=== PATIENT | male | born 1960 | race Caucasian/White ===

== ENCOUNTER 2016-06-22 09:13 | Outpatient (CLI) | payer OTHER, MEDICAID ==
[~2016-06-22 09:13] MED LIST: ACET1TAB25 PO; ACYC400T PO; DIPH25CA83 PO; LAMI100T7 PO; LAMI300T10 PO; MET10 PO; MODA100T5 PO; RALT100T PO; RALT400T5 PO; RITO100C2 PO; TRAM50TA92 PO; VIS25 PO; [UNRECOGNIZED DRUG - CODE] PO; [UNRECOGNIZED DRUG - CODE] PO
== END 2016-06-22 18:14 | disposition home or self-care (01) ==
LOC: SNM 09:13
PROVIDERS: ATTEND Internal Medicine Infectious Disease
DX: K80.20 Calculus of gallbladder without cholecystitis without obstruction (principal); K82.8 Other specified diseases of gallbladder
CPT/HCPCS: 78226; A9537

== ENCOUNTER 2016-11-25 16:53 | Inpatient (IN) | payer OTHER, MEDICAID ==
[~2016-11-25] VITALS: Ht 167.6 cm; Wt 37.2 kg
[~2016-11-25 16:53] MED LIST changes: -ACET1TAB25 PO; -DIPH25CA83 PO; -LAMI100T7 PO; -MET10 PO; -MODA100T5 PO; -TRAM50TA92 PO; -VIS25 PO; -[UNRECOGNIZED DRUG - CODE] PO
[2016-11-25 19:24] VITALS: BP_SYST 110
[2016-11-25 20:30] VITALS: BP_SYST 110
[2016-11-25] MEDS ORDERED: HYDROCORTISONE 1% 28.35 GM TOPICAL OINT. TP PRN (23:15)
[2016-11-26] VITALS (7 sets, daily range): BP systolic 104–126
[2016-11-26] MEDS ORDERED: COMMUNICATION ORDER XX PRN
[2016-11-26] MEDS ORDERED: D5W 1,000 ML IV SCH
[2016-11-26] MEDS: TEMAZEPAM 15 MG CAPSULE PO PRN ×2 (00:30→22:45)
[2016-11-26 07:13] LABS: BASOPHILS % (AUTO) 0.4 % (0.0-2.0); EOSINOPHILS # (AUTO) 0.1 K/uL (0.0-0.4); EOSINOPHILS % (AUTO) 1.6 % (0.0-4.0); HEMATOCRIT 39.3 % (36-54); HEMOGLOBIN 13.1 g/dL (14.0-18.0); LYMPHOCYTES # (AUTO) 1.7 K/uL (1.0-5.5); LYMPHOCYTES % (AUTO) 35.9 % (20.5-51.5); MEAN CORPUSCULAR HEMOGLOBIN 31 pg (27-31); MEAN CORPUSCULAR HGB CONC 33 % (32-36); MEAN CORPUSCULAR VOLUME 94 fL (79.0-98.0); MONOCYTES # (AUTO) 0.6 K/uL (0.0-1.0); MONOCYTES % (AUTO) 11.7 % (1.7-9.3); NEUTROPHILS # (AUTO) 2.4 K/uL (1.8-7.7); NEUTROPHILS % (AUTO) 50.4 % (40.0-70.0); PLATELET COUNT (AUTO) 275 K/uL (130-430); RED CELL DISTRIBUTION WIDTH 13.5 % (9.0-15.0); WHITE BLOOD COUNT (AUTO) 4.9 K/uL (4.8-10.8)
[2016-11-26] MEDS ORDERED: *PPN PER PHARMACY XX SCH (08:00)
[2016-11-26 08:05] LABS: ALBUMIN 3.2 g/dL (3.4-4.8); CALCIUM 9.4 mg/dL (8.4-11.0); CREATININE 0.46 mg/dL (0.55-1.30); POTASSIUM 3.4 mmol/L (3.5-5.1); TOTAL BILIRUBIN 2.8 mg/dL (0.0-1.0); TOTAL PROTEIN, SERUM 7.1 g/dL (6.4-8.3)
[2016-11-26 08:36] LABS: BILIRUBIN,URINE NEGATIVE (NEGATIVE); BLOOD, URINE NEGATIVE (NEGATIVE); CLARITY/URINE CLEAR (CLEAR); COLOR,URINE YELLOW (YELLOW); GLUCOSE,URINE NEGATIVE (NEGATIVE); KETONES,URINE NEGATIVE (NEGATIVE); LEUKOCYTE ESTERASE ,URINE NEGATIVE (NEGATIVE); NITRITE, URINE NEGATIVE (NEGATIVE); PROTEIN URINE NEGATIVE (NEGATIVE); UROBILINOGEN,URINE 0.2 (0.2-1.0)
[2016-11-26 08:52] LABS: PHOSPHORUS 4.3 mg/dL (2.7-4.5)
[2016-11-26] MEDS ORDERED: RALTEGRAVIR POTASSIUM PO SCH ×2 (09:00→21:00)
[2016-11-26] MEDS ORDERED: RITONAVIR 100 MG CAPSULE (NORVIR) PO SCH (09:00)
[2016-11-26] MEDS ORDERED: ATAZANAVIR SULFATE 300 MG PO SCH (09:00)
[2016-11-26] MEDS ORDERED: LAMIVUDINE 300 MG PO SCH (09:00)
[2016-11-26] MEDS ORDERED: DIATR MEGLU/DIATRIZ SOD 30 ML SOLUTION PO ONE (09:44)
[2016-11-26] MEDS: ACYCLOVIR 400 MG TABLET PO SCH ×2 (09:52→22:36)
[2016-11-26 10:05] LABS: TRIGLYCERIDES 37 mg/dL (30-150)
[2016-11-26] MEDS: LACTULOSE 20 GM/30 ML UDC PO SCH ×4 (10:07→15:49)
[2016-11-26 10:08] LABS: THYROID STIMULATING HORMONE < 0.01 uIu/mL (0.34-4.82)
[2016-11-26] MEDS ORDERED: POTASSIUM CHLORIDE 20 MEQ TAB.PRT.SR PO ONE (11:45)
[2016-11-26] MEDS ORDERED: IOHEXOL 100 ML IV ONE (13:30)
[2016-11-26] MEDS: cefTRIAXone 1 GM in D5W 50 ML IV SCH (14:06)
[2016-11-26] MEDS: MAGNESIUM CITRATE 300 ML ORAL SOLUTION PO ONE ×2 (15:49→18:33)
[2016-11-26] MEDS ORDERED: BISACODYL 5 MG TABLET.DR (DULCOLAX) PO ONE (17:00)
[2016-11-26] MEDS ORDERED: TPN PERIPHERAL 0.0001 ML, SODIUM ACETATE 40 MEQ, POTASSIUM CHLORIDE 20 MEQ, K PHOS 6 MM... IV SCH ×10 (18:00)
[2016-11-26] MEDS ORDERED: SORBITOL 70% SOLUTION, 30 ML UDBTL PO ONE (18:30)
[2016-11-26] MEDS: FAT EMULSIONS 250 ML IV SCH (18:47)
[2016-11-26] MEDS: TPN PERIPHERAL 0.0001 ML, SODIUM CHLORIDE 40 MEQ, POTASSIUM CHLORIDE 20 MEQ, K PHOS 6 M... IV SCH ×10 (18:49)
[2016-11-26] MEDS: METOCLOPRAMIDE HCL 10 MG/2 ML VIAL IVP PRN (22:36)
[2016-11-27 00:13] VITALS: BP_SYST 109
[2016-11-27 04:16] VITALS: BP_SYST 121
[2016-11-27 07:14] LABS: BASOPHILS % (AUTO) 0.3 % (0.0-2.0); EOSINOPHILS # (AUTO) 0.1 K/uL (0.0-0.4); EOSINOPHILS % (AUTO) 1.1 % (0.0-4.0); HEMATOCRIT 42.2 % (36-54); HEMOGLOBIN 14.1 g/dL (14.0-18.0); LYMPHOCYTES # (AUTO) 1.7 K/uL (1.0-5.5); LYMPHOCYTES % (AUTO) 24.4 % (20.5-51.5); MEAN CORPUSCULAR HEMOGLOBIN 31 pg (27-31); MEAN CORPUSCULAR HGB CONC 33 % (32-36); MEAN CORPUSCULAR VOLUME 92 fL (79.0-98.0); MONOCYTES # (AUTO) 0.6 K/uL (0.0-1.0); MONOCYTES % (AUTO) 9.6 % (1.7-9.3); NEUTROPHILS # (AUTO) 4.4 K/uL (1.8-7.7); NEUTROPHILS % (AUTO) 64.6 % (40.0-70.0); PLATELET COUNT (AUTO) 322 K/uL (130-430); RED BLOOD CELL COUNT(AUTO) 4.57 MIL/uL (4.2-6.2); RED CELL DISTRIBUTION WIDTH 13.7 % (9.0-15.0)
[2016-11-27 07:25] LABS: WHITE BLOOD COUNT (AUTO) 6.8 K/uL (4.8-10.8)
[2016-11-27 07:31] LABS: ALBUMIN 3.3 g/dL (3.4-4.8); CALCIUM 9.5 mg/dL (8.4-11.0); CREATININE 0.55 mg/dL (0.55-1.30); POTASSIUM 4.3 mmol/L (3.5-5.1); TOTAL BILIRUBIN 0.9 mg/dL (0.0-1.0); TOTAL PROTEIN, SERUM 7.6 g/dL (6.4-8.3)
[2016-11-27] MEDS: BISACODYL 5 MG TABLET.DR (DULCOLAX) PO ONE ×2 (07:35→08:04)
[2016-11-27] MEDS: MAGNESIUM CITRATE 300 ML ORAL SOLUTION PO ONE ×2 (07:36→08:05)
[2016-11-27 08:00] VITALS: BP_SYST 122
[2016-11-27 08:09] LABS: IRON (SERUM) 36 mcg/dL (59-158); TOTAL IRON BIND. CAPACITY 303 ug/dL (250-450)
[2016-11-27] MEDS: MIDAZOLAM HCL 5 MG/5 ML VIAL ONE ×4 (10:20→10:26)
[2016-11-27] MEDS: MEPERIDINE HCL/PF 100 MG/ML AMP ONE ×2 (10:20→10:38)
[2016-11-27 12:10] VITALS: BP_SYST 126
[2016-11-27] MEDS: RITONAVIR 100 MG PO SCH (12:35)
[2016-11-27] MEDS: ACYCLOVIR 400 MG TABLET PO SCH ×2 (12:35→21:21)
[2016-11-27] MEDS: cefTRIAXone 1 GM in D5W 50 ML IV SCH (12:35)
[2016-11-27] MEDS: ATAZANAVIR 150 MG PO SCH (12:37)
[2016-11-27 16:29] VITALS: BP_SYST 112
[2016-11-27 20:00] VITALS: BP_SYST 105
[2016-11-27] MEDS: FAT EMULSIONS 250 ML IV SCH (20:21)
[2016-11-27] MEDS: TPN PERIPHERAL 0.0001 ML, SODIUM CHLORIDE 40 MEQ, POTASSIUM CHLORIDE 20 MEQ, K PHOS 6 M... IV SCH ×10 (20:21)
[2016-11-27] MEDS: FAMOTIDINE 20 MG TABLET PO SCH (21:21)
[2016-11-28] VITALS (7 sets, daily range): BP systolic 116–149
[2016-11-28] MEDS: ACETAMINOPHEN 325 MG TABLET PO PRN ×2 (07:57→21:59)
[2016-11-28 08:06] LABS: AFP, TUMOR MARKER 4.7 ng/mL (0.0-8.3); HEPATITIS A AB, IgM Negative (Negative); HEPATITIS B CORE AB, IgM Negative (Negative); HEPATITIS B SURFACE AG Negative (Negative)
[2016-11-28] MEDS: FAMOTIDINE 20 MG TABLET PO SCH ×2 (08:52→20:54)
[2016-11-28] MEDS: ACYCLOVIR 400 MG TABLET PO SCH ×2 (08:52→20:54)
[2016-11-28] MEDS: RITONAVIR 100 MG PO SCH (08:52)
[2016-11-28] MEDS: ATAZANAVIR 150 MG PO SCH (08:53)
[2016-11-28] MEDS: MEGESTROL ACETATE 400 MG/10 ML UDC PO SCH ×2 (11:29→20:53)
[2016-11-28] MEDS: cefTRIAXone 1 GM in D5W 50 ML IV SCH (13:00)
[2016-11-28] MEDS: METHIMAZOLE 5 MG TABLET PO SCH ×2 (15:00→22:07)
[2016-11-28] MEDS: METOCLOPRAMIDE HCL 10 MG/2 ML VIAL IVP PRN (18:03)
[2016-11-28] MEDS: TPN PERIPHERAL 0.0001 ML, SODIUM CHLORIDE 40 MEQ, POTASSIUM CHLORIDE 20 MEQ, K PHOS 6 M... IV SCH ×10 (18:28)
[2016-11-28] MEDS: FAT EMULSIONS 250 ML IV SCH (18:29)
[2016-11-28 18:38] LABS: ANTI NUCLEAR AB WITH REFLEX Negative (Negative)
[2016-11-28] MEDS: TEMAZEPAM 15 MG CAPSULE PO PRN (20:54)
[2016-11-28] MEDS ORDERED: HYDROcodone/ACETAMIN 5-325 MG TAB (NORCO/ VICODIN) PO PRN (23:15)
[2016-11-29 04:12] VITALS: BP_SYST 113
[2016-11-29] MEDS: METHIMAZOLE 5 MG TABLET PO SCH ×3 (06:13→21:17)
[2016-11-29 08:00] VITALS: BP_SYST 110
[2016-11-29 08:03] LABS: ALBUMIN 3.1 g/dL (3.4-4.8); CREATININE 0.53 mg/dL (0.55-1.30); POTASSIUM 4.4 mmol/L (3.5-5.1); TOTAL BILIRUBIN 2.8 mg/dL (0.0-1.0); TOTAL PROTEIN, SERUM 7.3 g/dL (6.4-8.3)
[2016-11-29] MEDS: FAMOTIDINE 20 MG TABLET PO SCH ×2 (09:36→21:16)
[2016-11-29] MEDS: MEGESTROL ACETATE 400 MG/10 ML UDC PO SCH ×2 (09:36→21:16)
[2016-11-29] MEDS: ACYCLOVIR 400 MG TABLET PO SCH ×2 (09:36→21:16)
[2016-11-29] MEDS: RITONAVIR 100 MG PO SCH (09:37)
[2016-11-29] MEDS: ATAZANAVIR 150 MG PO SCH (09:38)
[2016-11-29] MEDS: MORPHINE 2 MG/ML INJ. SYRINGE IVP PRN ×2 (09:40→13:30)
[2016-11-29] MEDS: cefTRIAXone 1 GM in D5W 50 ML IV SCH (11:42)
[2016-11-29 12:03] VITALS: BP_SYST 119
[2016-11-29 14:29] LABS: ALPHA-1-ANTITRYPSIN, S 146 mg/dL (90-200)
[2016-11-29 16:08] VITALS: BP_SYST 128; BP_SYST 134
[2016-11-29] MEDS: FAT EMULSIONS 250 ML IV SCH (19:18)
[2016-11-29] MEDS: TPN PERIPHERAL 0.0001 ML, SODIUM CHLORIDE 40 MEQ, POTASSIUM CHLORIDE 20 MEQ, K PHOS 6 M... IV SCH ×10 (19:48)
[2016-11-29 20:00] VITALS: BP_SYST 128
[2016-11-29] MEDS: TEMAZEPAM 15 MG CAPSULE PO PRN (22:23)
[2016-11-30 00:17] VITALS: BP_SYST 123
[2016-11-30 04:00] VITALS: BP_SYST 128
[2016-11-30] MEDS: METHIMAZOLE 5 MG TABLET PO SCH ×4 (06:24→22:04)
[2016-11-30 06:55] LABS: BASOPHILS % (AUTO) 0.1 % (0.0-2.0); EOSINOPHILS % (AUTO) 0.2 % (0.0-4.0); HEMOGLOBIN 14.2 g/dL (14.0-18.0); LYMPHOCYTES # (AUTO) 1.9 K/uL (1.0-5.5); LYMPHOCYTES % (AUTO) 18.5 % (20.5-51.5); MEAN CORPUSCULAR HEMOGLOBIN 31 pg (27-31); MEAN CORPUSCULAR HGB CONC 33 % (32-36); MEAN CORPUSCULAR VOLUME 93 fL (79.0-98.0); MONOCYTES # (AUTO) 0.6 K/uL (0.0-1.0); MONOCYTES % (AUTO) 5.8 % (1.7-9.3); NEUTROPHILS # (AUTO) 7.6 K/uL (1.8-7.7); NEUTROPHILS % (AUTO) 75.4 % (40.0-70.0); PLATELET COUNT (AUTO) 321 K/uL (130-430); RED BLOOD CELL COUNT(AUTO) 4.62 MIL/uL (4.2-6.2); RED CELL DISTRIBUTION WIDTH 13.4 % (9.0-15.0); WHITE BLOOD COUNT (AUTO) 10.1 K/uL (4.8-10.8)
[2016-11-30 07:41] LABS: ALBUMIN 3.4 g/dL (3.4-4.8); CALCIUM 9.3 mg/dL (8.4-11.0); CREATININE 0.69 mg/dL (0.55-1.30); PHOSPHORUS 4.2 mg/dL (2.7-4.5); POTASSIUM 4.3 mmol/L (3.5-5.1); TOTAL BILIRUBIN 2.3 mg/dL (0.0-1.0)
[2016-11-30 08:00] VITALS: BP_SYST 141
[2016-11-30] MEDS: ACYCLOVIR 400 MG TABLET PO SCH ×2 (08:28→21:43)
[2016-11-30] MEDS: FAMOTIDINE 20 MG TABLET PO SCH ×2 (08:28→21:44)
[2016-11-30] MEDS: MEGESTROL ACETATE 400 MG/10 ML UDC PO SCH ×2 (08:29→21:43)
[2016-11-30] MEDS: HYDROCORTISONE 1%, 28.35 GM TOPICAL CREAM TP PRN ×2 (08:30→17:22)
[2016-11-30] MEDS: RITONAVIR 100 MG PO SCH (08:31)
[2016-11-30] MEDS: ATAZANAVIR 150 MG PO SCH (08:31)
[2016-11-30] MEDS ORDERED: HYDROmorphone 1 MG INJ. 1 MG/ML AMPUL IVP ONE (08:45)
[2016-11-30] MEDS: cefTRIAXone 1 GM in D5W 50 ML IV SCH (11:09)
[2016-11-30 11:10] LABS: ANTI-SMOOTH MUSCLE AB 14 Units (0-19)
[2016-11-30 11:48] VITALS: BP_SYST 138
[2016-11-30] MEDS ORDERED: GADOPENTETATE DIMEGLUMINE 15 ML VIAL IV ONE (13:26)
[2016-11-30 16:32] VITALS: BP_SYST 135
[2016-11-30] MEDS: FAT EMULSIONS 250 ML IV SCH (17:23)
[2016-11-30] MEDS: TPN PERIPHERAL 0.0001 ML, SODIUM CHLORIDE 40 MEQ, POTASSIUM CHLORIDE 20 MEQ, K PHOS 6 M... IV SCH ×10 (17:24)
[2016-11-30] MEDS: METOCLOPRAMIDE HCL 10 MG/2 ML VIAL IVP PRN (17:26)
[2016-11-30 20:00] VITALS: BP_SYST 111
[2016-11-30] MEDS: TEMAZEPAM 15 MG CAPSULE PO PRN (21:44)
[2016-11-30] MEDS: METOPROLOL TARTRATE 25 MG TABLET PO SCH (21:52)
[2016-12-01 00:59] VITALS: BP_SYST 129
[2016-12-01 04:00] VITALS: BP_SYST 118
[2016-12-01] MEDS: METHIMAZOLE 5 MG TABLET PO SCH ×2 (05:49→14:53)
[2016-12-01 08:29] LABS: POTASSIUM 4.3 mmol/L (3.5-5.1)
[2016-12-01 08:30] LABS: CALCIUM 9.5 mg/dL (8.4-11.0); CREATININE 0.63 mg/dL (0.55-1.30); FREE T4 (FREE THYROXINE) 2.2 ng/dL (0.6-1.6); PHOSPHORUS 3.7 mg/dL (2.7-4.5)
[2016-12-01 08:48] VITALS: BP_SYST 121
[2016-12-01] MEDS: MEGESTROL ACETATE 400 MG/10 ML UDC PO SCH (08:53)
[2016-12-01] MEDS: ATAZANAVIR 150 MG PO SCH (08:53)
[2016-12-01] MEDS: METOPROLOL TARTRATE 25 MG TABLET PO SCH (08:53)
[2016-12-01] MEDS: FAMOTIDINE 20 MG TABLET PO SCH (08:54)
[2016-12-01] MEDS: RITONAVIR 100 MG PO SCH (08:54)
[2016-12-01] MEDS: ACYCLOVIR 400 MG TABLET PO SCH (08:55)
[2016-12-01] MEDS: MORPHINE 2 MG/ML INJ. SYRINGE IVP PRN (11:26)
[2016-12-01] MEDS: cefTRIAXone 1 GM in D5W 50 ML IV SCH (12:13)
[2016-12-01 12:48] VITALS: BP_SYST 125
[2016-12-01 15:00] VITALS: BP_SYST 118
[2016-12-01 16:39] VITALS: BP_SYST 132
[2016-12-02 11:44] LABS: ATYPICAL pANCA <1:20 titer (Neg:<1:20); CYTOPLASMIC (C-ANCA) <1:20 titer (Neg:<1:20); CYTOPLASMIC (P-ANCA) <1:20 titer (Neg:<1:20)
== END 2016-12-01 16:22 | disposition home or self-care (01) | DRG 974 ==
LOC: SMU 19:03
PROVIDERS: ADMIT Internal Medicine Infectious Disease; ATTEND Internal Medicine Hospice and Palliative Medicine
PROC: 0DBH8ZX Excision of Cecum, Via Natural or Artificial Opening Endoscopic, Diagnostic (ICD-10-PCS; 2016-11-27)
PROC: 0DBE8ZX Excision of Large Intestine, Via Natural or Artificial Opening Endoscopic, Diagnostic (ICD-10-PCS; 2016-11-27)
PROC: 0DBB8ZX Excision of Ileum, Via Natural or Artificial Opening Endoscopic, Diagnostic (ICD-10-PCS; 2016-11-27)
PROC: 0DB58ZX Excision of Esophagus, Via Natural or Artificial Opening Endoscopic, Diagnostic (ICD-10-PCS; 2016-11-27)
PROC: 3E0336Z Introduction of Nutritional Substance into Peripheral Vein, Percutaneous Approach (ICD-10-PCS; 2016-11-27)
PROC: 0DB98ZX Excision of Duodenum, Via Natural or Artificial Opening Endoscopic, Diagnostic (ICD-10-PCS; principal; 2016-11-27 09:30)
PROC: 0DB68ZX Excision of Stomach, Via Natural or Artificial Opening Endoscopic, Diagnostic (ICD-10-PCS; 2016-11-27 09:30)
DX: B20 Human immunodeficiency virus [HIV] disease (principal); J18.9 Pneumonia, unspecified organism; E43 Unspecified severe protein-calorie malnutrition; Z68.1 Body mass index [BMI] 19.9 or less, adult; I25.10 Atherosclerotic heart disease of native coronary artery without angina pectoris; Z96.642 Presence of left artificial hip joint; G47.00 Insomnia, unspecified; K80.20 Calculus of gallbladder without cholecystitis without obstruction; L30.9 Dermatitis, unspecified; K21.0 Gastro-esophageal reflux disease with esophagitis; E86.0 Dehydration; E05.90 Thyrotoxicosis, unspecified without thyrotoxic crisis or storm; D12.0 Benign neoplasm of cecum; K44.9 Diaphragmatic hernia without obstruction or gangrene; K29.70 Gastritis, unspecified, without bleeding; R91.1 Solitary pulmonary nodule; Z88.6 Allergy status to analgesic agent; Z88.2 Allergy status to sulfonamides; Z88.8 Allergy status to other drugs, medicaments and biological substances; Z87.891 Personal history of nicotine dependence; Z87.11 Personal history of peptic ulcer disease; I25.2 Old myocardial infarction
CPT/HCPCS: 36415; 43239; 45380; 70553; 71020-TC; 71260-TC; 76700-TC; 78012; 78264-TC; 80048; 80053; 80074; 81003; 82103; 82105; 82977-TC; 83010; 83516; 83540-TC; 83550-TC; 83615-TC; 83690-TC; 83735-TC; 84100-TC; 84134; 84439; 84443-TC; 84478-TC; 85025; 85610-TC; 85651-TC; 85730-TC; 86038; 86256; 86376; 86738; 87081; 87086; 88305; 88312; 88313; A9516; A9541; A9579; J0610; J0696; J1170; J2175; J2250; J2270; J2765; J3475; J3480; J7050; J7060; J7131; J8499; Q9964; Q9967

== ENCOUNTER 2016-12-17 15:57 | Inpatient (IN) | payer OTHER, MEDICAID ==
[~2016-12-17] VITALS: Ht 167.6 cm; Wt 40.8 kg
--- NOTE | 2016-12-17 16:19 | NUR ---
ADMIT NOTE Received pt from admitting. Pt escorted to room 109C. Patient oriented to pain management, safety and call light-teach back done.
--- NOTE | 2016-12-17 16:48 | NUR ---
CONSULTATION PAGED REASON FOR CONSULTATION:RLQ PAIN R/O APPENDICITIS WAS CONSULT CALLED?Y PERSON WHO WAS NOTIFIED:LEXX CONSULTING PHYSICIAN:GENI WILKINSON QUALITY IMPROVEMENT CONSULTANT SPECIALTY:GI QUALITY IMPROVEMENT CONSULTANT PHONE NUMBER:[phone] ORDERING PHYSICIAN:ALXE BLACK
[2016-12-17 17:03] VITALS: BP_SYST 117
--- NOTE | 2016-12-17 17:04 | NUR ---
DR Dayana ANDUJAR IS AWARE OF THE ID CONSULT/ GASPER
[2016-12-17 17:07] LABS: BASOPHILS # (AUTO) 0.2 K/uL (0.0-0.2); EOSINOPHILS # (AUTO) 0.1 K/uL (0.0-0.4); EOSINOPHILS % (AUTO) 0.7 % (0.0-4.0); HEMATOCRIT 36.2 % (36-54); HEMOGLOBIN 12.1 g/dL (14.0-18.0); LYMPHOCYTES # (AUTO) 1.9 K/uL (1.0-5.5); LYMPHOCYTES % (AUTO) 10.5 % (20.5-51.5); MEAN CORPUSCULAR HEMOGLOBIN 31 pg (27-31); MEAN CORPUSCULAR HGB CONC 33 % (32-36); MEAN CORPUSCULAR VOLUME 93 fL (79.0-98.0); MONOCYTES # (AUTO) 1.6 K/uL (0.0-1.0); MONOCYTES % (AUTO) 8.7 % (1.7-9.3); NEUTROPHILS # (AUTO) 14.1 K/uL (1.8-7.7); NEUTROPHILS % (AUTO) 79.1 % (40.0-70.0); PLATELET COUNT (AUTO) 253 K/uL (130-430); RED BLOOD CELL COUNT(AUTO) 3.89 MIL/uL (4.2-6.2); RED CELL DISTRIBUTION WIDTH 13.9 % (9.0-15.0); WHITE BLOOD COUNT (AUTO) 17.9 K/uL (4.8-10.8)
[2016-12-17] MEDS ORDERED: FAMO20TA8 PO (17:12)
[2016-12-17 17:18] LABS: CALCIUM 8.9 mg/dL (8.4-11.0); CREATININE 0.55 mg/dL (0.55-1.30); POTASSIUM 4.5 mmol/L (3.5-5.1)
[2016-12-17 17:23] LABS: ALBUMIN 3.2 g/dL (3.4-4.8); TOTAL BILIRUBIN 2.9 mg/dL (0.0-1.0)
[2016-12-17] MEDS: HYDROmorphone 1 MG INJ. 1 MG/ML AMPUL IVP PRN ×2 (17:47→22:54)
[2016-12-17] MEDS ORDERED: DIATR MEGLU/DIATRIZ SOD 30 ML SOLUTION PO ONE (18:00)
--- NOTE | 2016-12-17 18:00 | NUR ---
NEW PT: RECEIVED PT FROM [facility], PT WAS A/O X4, C/O ABDOMINAL PAIN 4/10, IV AT RIGHT HAND, SKIN INTACT, CLEAR LIQUID DIET, AMBULATED WELL, CALL LIGHT WAHINE REACH.
[2016-12-17] MEDS: D5/0.45 NS 1,000 ML IV SCH (18:56)
[2016-12-17] MEDS: cefTRIAXone 1 GM in D5W 50 ML IV SCH (18:58)
--- NOTE | 2016-12-17 19:10 | NUR ---
CLOSING NOTE: ENDORSED TO TECHNICAL SUPERVISOR NURSE FOR CONTINUE CARE.
--- NOTE | 2016-12-17 19:41 | NUR ---
Pt going to CT Scan at this time.
[2016-12-17 20:00] VITALS: BP_SYST 117
[2016-12-17] MEDS ORDERED: ATAZANAVIR SULFATE 300 MG PO SCH (21:00)
[2016-12-17] MEDS ORDERED: RALTEGRAVIR POTASSIUM PO SCH (21:00)
--- NOTE | 2016-12-17 21:53 | NUR ---
REPORT CAT SCAN RESULT TO MD Received call back from Dr. Sage Licea. result of ct scan abd read can not r/o cholecystitis rec hida scan. Order received for consult with Dr. De Luna and Hida scan to follow.
[2016-12-17] MEDS: ACYCLOVIR 400 MG TABLET PO SCH (22:07)
[2016-12-17] MEDS: FAMOTIDINE 20 MG TABLET PO SCH (22:07)
--- NOTE | 2016-12-17 22:23 | NUR ---
PAIN MED: Pt states pain med Dilaudid IVP only lasts for 3 hours and abd pain is still 9/10 after. Pt requesting to have it changed to every 3hrs and requesting for a sleeping pill. Paged Dr. Sage Licea, exchange left msg. Will follow up.
--- NOTE | 2016-12-17 22:55 | NUR ---
DILAUDID: Dilaudid 1mg IVP 1 ampule removed from Pixes, but given only 0.5mg as ordered, clicked on YES instead of No under administer full dose on pixes, CRN aware.
--- NOTE | 2016-12-17 22:58 | NUR ---
MD ROUNDS: Dr. Escobedo here to see pt.
[2016-12-17] MEDS ORDERED: LACTULOSE 20 GM/30 ML UDC PO PRN (23:15)
[2016-12-17] MEDS: TEMAZEPAM 15 MG CAPSULE PO PRN (23:43)
[2016-12-18 00:28] VITALS: BP_SYST 157
--- NOTE | 2016-12-18 01:29 | NUR ---
CONSULT REASON HIDA SCAN TO FOLLOW FOR DOCTOR ALEXANDRA SPOKE WITH NASEEM
[2016-12-18] MEDS: HYDROmorphone 1 MG INJ. 1 MG/ML AMPUL IVP PRN ×4 (02:38→21:24)
--- NOTE | 2016-12-18 02:38 | NUR ---
ROUNDING: PT c/o abd pain 01/03. Medicated with Dilaudid 0.5mg IVP PRN. Pt denies any n/v. Pt aware he is NPO after midnight for Hidascan in am and no pain meds 4hrs prior to the scan. IVF infusing on R.H 20G clear and patent. Call light within reach. To monitor.
[2016-12-18 04:34] VITALS: BP_SYST 95
--- NOTE | 2016-12-18 06:46 | NUR ---
CLOSING NOTES: Pt awake. Pt voided 500 ml clear, dark yellow urine. Pt aware pain med cannot be given 4 hours prior to Hidascan. IVF infusing R hand 20G clear, patent. To endorse to am nurse.
[2016-12-18 07:03] LABS: BASOPHILS % (AUTO) 0.1 % (0.0-2.0); EOSINOPHILS # (AUTO) 0.2 K/uL (0.0-0.4); EOSINOPHILS % (AUTO) 1.2 % (0.0-4.0); HEMATOCRIT 34.5 % (36-54); HEMOGLOBIN 11.7 g/dL (14.0-18.0); LYMPHOCYTES # (AUTO) 1.6 K/uL (1.0-5.5); LYMPHOCYTES % (AUTO) 9.9 % (20.5-51.5); MEAN CORPUSCULAR HEMOGLOBIN 31 pg (27-31); MEAN CORPUSCULAR HGB CONC 34 % (32-36); MEAN CORPUSCULAR VOLUME 93 fL (79.0-98.0); MONOCYTES # (AUTO) 1.4 K/uL (0.0-1.0); MONOCYTES % (AUTO) 8.7 % (1.7-9.3); NEUTROPHILS # (AUTO) 12.7 K/uL (1.8-7.7); NEUTROPHILS % (AUTO) 80.1 % (40.0-70.0); PLATELET COUNT (AUTO) 216 K/uL (130-430); RED BLOOD CELL COUNT(AUTO) 3.73 MIL/uL (4.2-6.2); RED CELL DISTRIBUTION WIDTH 13.8 % (9.0-15.0); WHITE BLOOD COUNT (AUTO) 15.9 K/uL (4.8-10.8)
[2016-12-18 07:31] LABS: CALCIUM 8.2 mg/dL (8.4-11.0); CREATININE 0.51 mg/dL (0.55-1.30); POTASSIUM 4.1 mmol/L (3.5-5.1)
--- NOTE | 2016-12-18 07:43 | NUR ---
PT REFUSED THIS AM VITALS SIGNS Addendum: 12/18/16 at 0814 by Giuliano Brennan RN PLS DISREGARD THIS PT'S NOTE, THIS BELONGS TO ANOTHER PATIENT
[2016-12-18 07:44] VITALS: BP_SYST 109
--- NOTE | 2016-12-18 08:00 | NUR ---
OPENING NOTES, SEEN PT IN BED, PT IS AA0X4, C/O PAIN 02/02. WILL MEDICATE, PT ON ROOM AIR, BREATHING IS EVEN AND UNLABORED, NO SOB, NO DISTRESS, RIGHT HAND IV #20 INTACT AND PATENT. NO INFILTRATION/ NO LEAK. INFUSING WELL. PHONE/CALL LIGHT IN REACH. BED IN LOW POSITION. WILL CONTINUE TO MONITOR.
[2016-12-18] MEDS: ACYCLOVIR 400 MG TABLET PO SCH ×2 (08:06→20:36)
[2016-12-18] MEDS: FAMOTIDINE 20 MG TABLET PO SCH ×2 (08:06→20:36)
[2016-12-18] MEDS: RITONAVIR 100 MG PO SCH (08:13)
[2016-12-18] MEDS: ATAZANAVIR 150 MG PO SCH (08:13)
--- NOTE | 2016-12-18 08:14 | NUR ---
PT'S OWN MEDICATIONS NOT AVAILABLE, PT STATED THAT HIS FAMILY HAS BEEN TOLD TO BRING IT HERE.
--- NOTE | 2016-12-18 08:51 | NUR ---
Nutrition Update Dillan Scale 18 noted. Pt admitted for severe R lower quadrant pain. Diet: clear liquid (12/17/16 Dinner) and NPO (12/18/16 Breakfast) -- 2 active, separate diet orders BMI: 14.5 kg/m2 RD to follow per nutrition care standards.
[2016-12-18] MEDS ORDERED: RITONAVIR 100 MG CAPSULE (NORVIR) PO SCH (09:00)
[2016-12-18] MEDS ORDERED: RALTEGRAVIR POTASSIUM PO SCH (09:00)
[2016-12-18] MEDS ORDERED: LAMIVUDINE 300 MG PO SCH (09:00)
--- NOTE | 2016-12-18 10:00 | NUR ---
Rounding notes, Pt in bed, no c/o pain. no distress noted. IV intact. IVF infusing well. Encouraged pt to call for assistance. call light in reach. bed in low position. will cont to monitor.
[2016-12-18] MEDS: D5/0.45 NS 1,000 ML IV SCH (10:51)
--- NOTE | 2016-12-18 12:00 | NUR ---
PT KEPT NPO FOR HIDA SCAN. NO PAIN MEDS GIVEN.
[2016-12-18 12:05] VITALS: BP_SYST 123
--- NOTE | 2016-12-18 15:00 | NUR ---
PT CAME BACK FROM HIDA SCAN. GIVEN CLEAR LIQUID DIET.
--- NOTE | 2016-12-18 15:20 | NUR ---
1520: PT GIVEN PAIN MED, DILAUDID 0.5 MG, FOR PAIN LEVEL OF 10/10 IN ABDOMEN.
--- NOTE | 2016-12-18 15:50 | NUR ---
PAIN REASSESSMENT: 0/10 , NO PAIN.
[2016-12-18 15:55] VITALS: BP_SYST 129
[2016-12-18] MEDS: cefTRIAXone 1 GM in D5W 50 ML IV SCH (17:37)
--- NOTE | 2016-12-18 17:38 | NUR ---
PT MADE AWARE OF DR MORRIS'S ORDER INCLUDING NPO AFTER MIDNIGHT.
--- NOTE | 2016-12-18 18:40 | NUR ---
CLOSING NOTES, PT IN BED, GIVEN PAIN MED AT 1820PM, VISITOR AT BEDSIDE. PT'S OWN MED GIVEN TO PHARMACIST AND NOW IN PT'S CASSETTE IN MED ROOM. LABS ORDERED BY DR MORRIS AND PT TO BE NPO AFTER MIDNIGHT. WILL ENDORSE TO NIGHT RN.
[2016-12-18 20:37] VITALS: BP_SYST 112
--- NOTE | 2016-12-18 20:40 | NUR ---
Initial note A/O x 3, no SOB, no chest pain, c/o R sided ABD pain 12/03. Patient is aware of next Dilaudid will be around 2119. Clear lung sounds and active bowel sounds. Call light within reach, bed at lowest position, bed alarm on, will continue to monitor patient.
--- NOTE | 2016-12-18 21:24 | NUR ---
C/o R ABD pain 12/03. Dilaudid 0.5 mg IVP given per patient requested.
[2016-12-18] MEDS: TEMAZEPAM 15 MG CAPSULE PO PRN (21:27)
--- NOTE | 2016-12-18 21:27 | NUR ---
Patient asking for sleeping pill. Restoril given.
--- NOTE | 2016-12-18 21:30 | NUR ---
PHY CONS: PHY CONSULT: ( [facility]ROLE[facility] GEOLOGIST) TIME:0700 DATE:12/19/16 REASON FOR CONS:CAD PHY REQ COSN:DR.PATELN S.W:YOUSIF
--- NOTE | 2016-12-18 21:40 | NUR ---
Informed Dr. Salcedo the cardiac consult.
--- NOTE | 2016-12-18 22:05 | NUR ---
Rounds Sleeping in bed, no SOB, no chest pain, no grimacing after Dilaudid and sleeping pill given. IVF ongoing. Call light within reach, bed at lowest position, bed alarm on, will continue to monitor patient.
--- NOTE | 2016-12-18 22:05 | NUR ---
Reassessed pain level Patient is sleeping, no grimacing.
--- NOTE | 2016-12-18 22:50 | NUR ---
Emptied 700 ml clear yellow urine.
[2016-12-19] VITALS (7 sets, daily range): BP systolic 104–113
--- NOTE | 2016-12-19 | NUR ---
Rounds Sleeping in bed, no SOB, no chest pain, no grimacing. IVF ongoing. Call light within reach, bed at lowest position, bed alarm on, will continue to monitor patient.
[2016-12-19] MEDS: HYDROmorphone 1 MG INJ. 1 MG/ML AMPUL IVP PRN ×7 (01:17→22:09)
--- NOTE | 2016-12-19 01:17 | NUR ---
C/o R ABD 02/02 pain Dilaudid 0.5 mg IVP given per patient requested.
--- NOTE | 2016-12-19 01:50 | NUR ---
Reassessed pain level Patient is sleeping, no grimacing.
--- NOTE | 2016-12-19 02:00 | NUR ---
Rounds Sleeping in bed, no SOB, no chest pain, no grimacing after Dilaudid given. IVF ongoing. Call light within reach, bed at lowest position, bed alarm on, will continue to monitor patient.
--- NOTE | 2016-12-19 04:00 | NUR ---
Rounds Resting/sleeping in bed, easy to awake. No SOB, no chest pain, mild pain at R ABD. Call light within reach, bed at lowest position, bed alarm on, will continue to monitor patient.
--- NOTE | 2016-12-19 05:27 | NUR ---
C/o ABD pain, 02/02 Dilaudid 0.5 mg IVP given per patient requested.
--- NOTE | 2016-12-19 06:11 | NUR ---
Rounds Sleeping in bed, no SOB, no chest pain, no grimacing after Dilaudid IVP given. IVF ongoing, still has 200 ml left. Call light within reach, bed at lowest position, bed alarm on, will continue to monitor patient.
--- NOTE | 2016-12-19 06:24 | NUR ---
Closing note No SOB, no chest pain, but still has R ABD pain. Patient stated Dilaudid is not working for him too well now. Will inform incoming nurse regarding patient pain management. Call light within reach, bed at lowest position, bed alarm on, will give report to incoming nurse.
[2016-12-19] MEDS: D5/0.45 NS 1,000 ML IV SCH ×2 (06:38→18:45)
--- NOTE | 2016-12-19 06:38 | NUR ---
IVF bag almost empty. Changed a new bag. Patient was sleeping/resting in bed.
[2016-12-19 07:10] LABS: ALBUMIN 2.4 g/dL (3.4-4.8); BILIRUBIN,DIRECT 0.5 mg/dL (0.0-0.3); CALCIUM 8.3 mg/dL (8.4-11.0); CREATININE 0.65 mg/dL (0.55-1.30); POTASSIUM 3.3 mmol/L (3.5-5.1); TOTAL BILIRUBIN 1.6 mg/dL (0.0-1.0)
[2016-12-19 07:11] LABS: BASOPHILS % (AUTO) 0.1 % (0.0-2.0); EOSINOPHILS # (AUTO) 0.2 K/uL (0.0-0.4); HEMATOCRIT 34.4 % (36-54); HEMOGLOBIN 11.7 g/dL (14.0-18.0); LYMPHOCYTES # (AUTO) 1.3 K/uL (1.0-5.5); LYMPHOCYTES % (AUTO) 8.6 % (20.5-51.5); MEAN CORPUSCULAR HEMOGLOBIN 31 pg (27-31); MEAN CORPUSCULAR HGB CONC 34 % (32-36); MEAN CORPUSCULAR VOLUME 92 fL (79.0-98.0); MONOCYTES # (AUTO) 1.5 K/uL (0.0-1.0); MONOCYTES % (AUTO) 9.9 % (1.7-9.3); NEUTROPHILS # (AUTO) 12.3 K/uL (1.8-7.7); PLATELET COUNT (AUTO) 232 K/uL (130-430); RED BLOOD CELL COUNT(AUTO) 3.72 MIL/uL (4.2-6.2); RED CELL DISTRIBUTION WIDTH 13.1 % (9.0-15.0); WHITE BLOOD COUNT (AUTO) 15.3 K/uL (4.8-10.8)
--- NOTE | 2016-12-19 08:06 | NUR ---
AM ROUNDS RECEIVED PT SLEEPING BUT AROUSABLE. AAOX4 IN NO ACUTE DISTRESS. IVF INFUSING WELL INTO RT FA, NO S/S OF INFILTRATION NOTED. PT DENIES ANY PAIN AT THIS TIME. NO FEVER NOTED THIS AM. DISCUSSED WITH PT POC FOR THE DAY, PT VERBALIZED UNDERSTANDING. BED NOTED TO BE IN LOWEST POSITION WITH SIDE RAILS UP X2. CALL LIGHT WITHIN REACH, PT ENCOURAGED TO USE CALL LIGHT FOR ASSISTANCE. VERBALIZED UNDERSTANDING. Addendum: 12/19/16 at 0809 by Abby Lan RN ENTERED IN ERROR. WRONG PATIENT
--- NOTE | 2016-12-19 08:17 | NUR ---
AM ROUNDS RECEIVED PT AAOX4, C/O PAIN 01/03. IVF INFUSING WELL INTO RT HAND, NO S/S OF INFILTRATION NOTED. DISCUSSED POC FOR THE DAY WITH PT INCLUDING PAIN MANAGEMENT AND MRCP, PT VERBALIZED UNDERSTANDING. BED NOTED TO BE IN LOWEST POSITION WITH SIDE RAILS UP X2 AND CALL LIGHT WITHIN REACH. ENCOURAGED PT TO USE CALL LIGHT FOR ASSISTANCE. PT VERBALIZED UNDERSTANDING. WILL MEDICATE FOR PAIN PER MD ORDER.
[2016-12-19] MEDS: ACYCLOVIR 400 MG TABLET PO SCH ×2 (09:00→21:36)
[2016-12-19] MEDS: ATAZANAVIR 150 MG PO SCH (09:00)
[2016-12-19] MEDS: RITONAVIR 100 MG PO SCH (09:00)
[2016-12-19] MEDS: FAMOTIDINE 20 MG TABLET PO SCH ×2 (09:00→21:36)
[2016-12-19 09:17] LABS: PROTHROMBIN TIME 11.3 SECS (9.5-12.5)
[2016-12-19 09:51] LABS: NEUTROPHILS % (AUTO) 80.4 % (40.0-70.0)
[2016-12-19 10:00] LABS: FREE T4 (FREE THYROXINE) 0.9 ng/dl (0.8-1.5)
[2016-12-19 10:41] LABS: THYROID STIMULATING HORMONE < 0.01 uIu/mL (0.34-4.82)
--- NOTE | 2016-12-19 11:27 | NUR ---
ROUNDS PT NOTED TO BE SITTING UP IN BED WATCHING TV. C/O PAIN 01/03 AT THIS TIME. WILL MEDICATED WITH DILAUDID PER MD ORDER. PT NOTIFIED THAT DOSE WAS INCREASED FROM 0.5MG TO 1MG. PT VERBALIZED UNDERSTANDING. CALL LIGHT WITHIN REACH. PT ENCOURAGED TO CALL FOR ASSISTANCE
--- NOTE | 2016-12-19 12:19 | NUR ---
DR. MORRIS ROUNDS DR. MORRIS ASKING IF MRCP WILL BE DONE TODAY OR NOT. VERIFIED WITH CHARGE NURSE AND MRCP WILL NOT BE DONE UNTIL WEDNESDAY. DR. MORRIS AWARE.
--- NOTE | 2016-12-19 12:30 | NUR ---
MRCP PT INFORMED THAT MRCP WILL NOT BE DONE UNTIL WEDNESDAY AND THAT HE IS OK TO EAT. PT VERBALIZED UNDERSTANDING
--- NOTE | 2016-12-19 13:45 | NUR ---
Dietitian Recommendations * Consider advance to clear liquid diet if/when medically appropriate LP, RD Please refer to Nutrition Assessment for details.
--- NOTE | 2016-12-19 14:03 | NUR ---
ROUNDS PT NOTED TO BE SITTING UP IN BED WITH VISITOR AT BEDSIDE. STATES PAIN IS 7 OR 8 OUT OF 10. INSTRUCTED PT I WILL BRING IN HIS PAIN MEDICATION WHEN IT WAS DUE IN ABOUT 30 MINIUTES. PT VERBALIZED UNDERSTANDING AND WAS AGREEABLE TO THAT. NO ACUTE DISTRESS NOTED. CALL LIGHT WITHIN REACH. PT ENCOURAGED TO USE CALL LIGHT FOR ASSISTANCE. VERBALIZED UNDERSTANDING
--- NOTE | 2016-12-19 16:06 | NUR ---
ROUNDS PT RESTING IN BED WATCHING TV. NO PAIN NOTED AT THIS TIME. DISCUSSED POC REGARDING PAIN MEDICATION PRIOR TO SHIFT CHANGE. PT TO CALL RN BEFORE 7 TO REQUEST DOSE. PT VERBALIZED UNDERSTANDING. CALL LIGHT WITHIN REACH. ENCOURAGED TO USE CALL LIGHT FOR ASSISTANCE.
[2016-12-19] MEDS: cefTRIAXone 1 GM in D5W 50 ML IV SCH (17:46)
--- NOTE | 2016-12-19 19:01 | NUR ---
CLOSING NOTE PT SITTING UP IN BED WATCHING TV IN NO ACUTE DISTRESS. MEDICATED FOR PAIN PRIOR TO SHIFT CHANGE. PT AWARE OF PLAN FOR MRCP ON Wednesday. BED IN LOWEST POSITION WITH SIDE RAILS UP X2 AND CALL LIGHT WITHIN REACH. ENCOURAGED TO USE CALL LIGHT FOR ASSISTANCE. WILL ENDORSE TO NOC SHIFT
--- NOTE | 2016-12-19 19:25 | NUR ---
INITIAL NOTE Patient resting on the bed. No acute distress. Respiration even and unlabored. AO x 4. Denied of pain at this time. Skin warm and dry to touch. IV intact to right hand, no redness, no swelling, no drainage. On D5 1/2NS at 60ml/hr, infusing well. Discussed the safety issue, use call light when need help, and plan of care, verbally understanding. Safety measure maintained. Bed in low position, side rails up. Call light within reached. Will continue to monitor.
[2016-12-19] MEDS: TEMAZEPAM 15 MG CAPSULE PO PRN (21:41)
--- NOTE | 2016-12-19 22:09 | NUR ---
DILAUDID GIVEN Patient c/o right abdomen pain 12/03, Dilaudid 1mg IVP given as ordered. No acute distress. Respiration even and unlabored. Safety measure maintained. Bed in low position, side rails up. Call light within reached. Will continue to monitor.
--- NOTE | 2016-12-19 23:57 | NUR ---
ROUND Patient resting on the bed comfortable. No acute distress. Respiration even and unlabored. IV intact, IVF infusing well.Safety measure maintained. Call light within reached. Bed in low position, side rails up. Continue to monitor.
[2016-12-20 00:09] VITALS: BP_SYST 99
[2016-12-20] MEDS: D5/0.45 NS 1,000 ML IV SCH ×2 (00:15→16:40)
--- NOTE | 2016-12-20 00:50 | NUR ---
IV RE-INSERTION: Complaining of leaking to IV site. IV removed with tip intact, no bleeding. Restarted on LFA with gauge 22 Successful after two attempts. Resumed current IVF of D5 1/2NS and regulated @ 60ml/hr. Will observe for any signs of infiltration.
[2016-12-20] MEDS: HYDROmorphone 1 MG INJ. 1 MG/ML AMPUL IVP PRN ×7 (01:09→23:28)
--- NOTE | 2016-12-20 01:14 | NUR ---
DILAUDID GIVEN Patient c/o right abdomen pain 11/02, Dilaudid 1mg IVP given as ordered. No acute distress. Respiration even and unlabored. Safety measure maintained. Bed in low position, side rails up. Call light within reached. Will continue to monitor.
--- NOTE | 2016-12-20 02:25 | NUR ---
DR. ANDUJAR [facility] VISITED WITH TPN ORDER.
[2016-12-20] MEDS ORDERED: *TPN PER PHARMACY XX PRN (02:30)
--- NOTE | 2016-12-20 02:31 | NUR ---
ROUND Patient resting on the bed with eyes closed. No acute distress. Respiration even and unlabored. IV intact, IVF infusing well. Safety measure maintained. Bed in low position, side rails up. Call light within reached. Continue to monitor.
--- NOTE | 2016-12-20 04:18 | NUR ---
DILAUDID GIVEN Patient c/o right abdomen pain 11/02, Dilaudid 1mg IVP given as ordered. No acute distress. Safety measure maintained. Bed in low position, side rails up. Call light within reached. Continue to monitor.
[2016-12-20 05:03] VITALS: BP_SYST 104
--- NOTE | 2016-12-20 06:36 | NUR ---
CLOSING NOTE Patient resting on the bed. No acute distress. Respiration even and unlabored. Skin warm and dry to touch. IV intact to LFA, no redness, no swelling, no drainage. On D5 1/2NS at 60ml/hr, infusing well. Pain med given around clock during shift. All needs met. Hourly rounding during shift. Safety measure maintained. Bed in low position, side rails up. Call light within reached. Will endorse to morning shift nurse.
[2016-12-20 08:01] VITALS: BP_SYST 105
[2016-12-20] MEDS: FAMOTIDINE 20 MG TABLET PO SCH ×2 (08:15→20:10)
[2016-12-20] MEDS: ACYCLOVIR 400 MG TABLET PO SCH ×2 (08:15→20:10)
[2016-12-20] MEDS: RITONAVIR 100 MG PO SCH (08:17)
[2016-12-20] MEDS: ATAZANAVIR 150 MG PO SCH ×2 (08:18→08:22)
[2016-12-20] MEDS ORDERED: COR3.125 PO (08:31)
[2016-12-20] MEDS ORDERED: METO25TA6 PO (08:31)
[2016-12-20] MEDS ORDERED: METH5TAB70 PO (08:31)
--- NOTE | 2016-12-20 09:30 | NUR ---
Comfort TSB, back rub /lotion given with minimal assist ,no sign pressure sore, encouraged patient to change position from time to time verbalized understanding.
[2016-12-20 10:04] LABS: CREATININE 0.61 mg/dL (0.55-1.30); POTASSIUM 3.3 mmol/L (3.5-5.1)
[2016-12-20 10:08] LABS: ALBUMIN 2.3 g/dL (3.4-4.8); PHOSPHORUS 2.1 mg/dL (2.7-4.5); TOTAL BILIRUBIN 0.5 mg/dL (0.0-1.0)
[2016-12-20] MEDS ORDERED: METOPROLOL TARTRATE 25 MG TABLET PO ONE (11:15)
[2016-12-20 12:14] VITALS: BP_SYST 128
--- NOTE | 2016-12-20 12:38 | NUR ---
Patient upper abdominal pain is better tolerates clear liquid with out nausea/vomiting.
--- NOTE | 2016-12-20 15:41 | NUR ---
PAGED DR LUKEOK [phone], JAZMINE PIPER
--- NOTE | 2016-12-20 16:00 | NUR ---
IV PLACEMENT: # 22 gauge angiocath placed to LEFT FOREARM. Use of asceptic technique. Opsite placed over site. Blood return noted. Flushed with 10 cc of normal saline. No evidence of infiltration noted. Patient tolerated WELL.Reinserted IV cannula for PPN.
[2016-12-20 16:07] VITALS: BP_SYST 110
[2016-12-20] MEDS: cefTRIAXone 1 GM in D5W 50 ML IV SCH (16:44)
[2016-12-20] MEDS: FAT EMULSIONS 250 ML IV SCH (17:28)
--- NOTE | 2016-12-20 17:30 | NUR ---
Explained to patient PPN/LIPIDS infusion agree and started , to left forearm instructed if any feeling of tightness, pain, redness or infiltration to call RN verbalized understanding, will continue to monitor, provided bedside commode due to fall risk , instructed to call for help if his getting out of bed call light within reach.
[2016-12-20] MEDS ORDERED: TPN PERIPHERAL 0.0001 ML, SODIUM ACETATE 40 MEQ, POTASSIUM ACETATE 20 MEQ, K PHOS 9 MM,... IV SCH ×10 (18:00)
[2016-12-20 20:00] VITALS: BP_SYST 121
--- NOTE | 2016-12-20 20:00 | NUR ---
Initial note A/O x 3, no SOB, no chest pain, c/o R sided ABD pain 10/10. Patient Dilaudid is given. Clear lung sounds and active bowel sounds. Call light within reach, bed at lowest position, bed alarm on, will continue to monitor patient.
[2016-12-20] MEDS: METOPROLOL TARTRATE 25 MG TABLET PO SCH (20:10)
[2016-12-20] MEDS: METHIMAZOLE 5 MG TABLET PO SCH (20:11)
[2016-12-20] MEDS: TEMAZEPAM 15 MG CAPSULE PO PRN (22:34)
--- NOTE | 2016-12-20 22:38 | NUR ---
RN NOTES: PT is awake in the bed. c/o can't sleep.request sleep medication.dim the light,reposition pt,instruct pt to call if need any help,call light within reach. pt need all met.
--- NOTE | 2016-12-20 23:32 | NUR ---
PAIN MEDS: PAIN medication is given as pt request . able to ambulate to the bed commode.call light within reach.continue monitor.
[2016-12-21 00:56] VITALS: BP_SYST 103
[2016-12-21] MEDS: HYDROmorphone 1 MG INJ. 1 MG/ML AMPUL IVP PRN ×6 (02:21→22:38)
--- NOTE | 2016-12-21 02:28 | NUR ---
PAIN MEDICATION: PT C/O PAIN,BUT NO DISTRESS OF BREATH,CAN'T SLEEP BECAUSE OF THE ABD PAIN.REQUEST DILAUDID GIVE ON TIME Q3.CALL LIGHT WITHIN REACH.
[2016-12-21 04:48] VITALS: BP_SYST 107
--- NOTE | 2016-12-21 05:30 | NUR ---
RN NOTES: PT is awake and alert ,sitting on the bed commode for stool.stool is loose,dark color.urine [id number].pain medication is given.call light within reach,continue monitor.
--- NOTE | 2016-12-21 07:30 | NUR ---
CLOSING NOTES: PT is resting in the bed ,IV is intact,ambulatory. explain still need keep in NPO for possible Operation,waiting for the OR available.all needs ate met.call light within reach ,continue monitor.
[2016-12-21 07:36] LABS: BASOPHILS % (AUTO) 0.1 % (0.0-2.0); EOSINOPHILS # (AUTO) 0.2 K/uL (0.0-0.4); EOSINOPHILS % (AUTO) 2.1 % (0.0-4.0); HEMATOCRIT 32.6 % (36-54); HEMOGLOBIN 10.9 g/dL (14.0-18.0); LYMPHOCYTES # (AUTO) 1.2 K/uL (1.0-5.5); LYMPHOCYTES % (AUTO) 14.9 % (20.5-51.5); MEAN CORPUSCULAR HEMOGLOBIN 31 pg (27-31); MEAN CORPUSCULAR HGB CONC 33 % (32-36); MEAN CORPUSCULAR VOLUME 92 fL (79.0-98.0); MONOCYTES # (AUTO) 0.8 K/uL (0.0-1.0); NEUTROPHILS # (AUTO) 6.1 K/uL (1.8-7.7); NEUTROPHILS % (AUTO) 72.9 % (40.0-70.0); PLATELET COUNT (AUTO) 247 K/uL (130-430); RED BLOOD CELL COUNT(AUTO) 3.55 MIL/uL (4.2-6.2); RED CELL DISTRIBUTION WIDTH 13.1 % (9.0-15.0); WHITE BLOOD COUNT (AUTO) 8.3 K/uL (4.8-10.8)
[2016-12-21 07:45] LABS: PROTHROMBIN TIME 10.9 SECS (9.5-12.5)
[2016-12-21 08:00] VITALS: BP_SYST 125
[2016-12-21 08:00] LABS: ALBUMIN 2.1 g/dL (3.4-4.8); BILIRUBIN,DIRECT 0.2 mg/dL (0.0-0.3); CREATININE 0.56 mg/dL (0.55-1.30); PHOSPHORUS 2.2 mg/dL (2.7-4.5); POTASSIUM 3.2 mmol/L (3.5-5.1); TOTAL BILIRUBIN 0.7 mg/dL (0.0-1.0)
--- NOTE | 2016-12-21 08:00 | NUR ---
AM SHIFT NOTE: RECEIVED PT A/O X4, NPO FOR SURGERY TODAY, IV AT LEFT FA WITH PPN AND LIPID RUNNING, SKIN INTACT, AMBULATED WITH FIRE WATCHER, BED AT LOWEST POSITION, CALL LIGHT WITHIN REACH.
[2016-12-21] MEDS: FAMOTIDINE 20 MG TABLET PO SCH ×2 (09:20→21:40)
[2016-12-21] MEDS: ACYCLOVIR 400 MG TABLET PO SCH ×2 (09:20→21:39)
[2016-12-21] MEDS: METOPROLOL TARTRATE 25 MG TABLET PO SCH ×2 (09:20→21:40)
--- NOTE | 2016-12-21 09:30 | NUR ---
MEDS: PAIN MEDS GIVEN, ROUTINE MEDS GIVE. PT TOLERATED WELL.
--- NOTE | 2016-12-21 09:50 | NUR ---
Nutrition F/U Admitting Diagnosis Severe RLQ pain, malnutrition Reviewed Pertinent Medical/Surgical Hx Medical Record Medical History Comment: HIV, hyperthyroidism per MD notes Subjective Information Pt was not in room at time of RD visit. Pt was likely away for MRI MRCP. Per MD orders, plans for MRI MRCP this morning as well as lap cholecystectomy versus open cholecystectomy this afternoon. RD s/w pharmacist this morning to provide RD rec. Pt remains on PPN support; no central line. Per EMR, PPN Intakes: 624 ml 12/21/16. Abd is soft and non-distended w/ active bowel sounds. I/O: 1344/0 (+1344 ml) per 12 hours. Pt is not yet meeting optimal nutritional needs. Pt is not appropriate for nutrition education. Current Diet Order/Nutrition Support NPO x1 day PPN D20%, AA8.5% at 42 ml/hr, IL20% at 10 ml/hr daily via peripheral line Patient/Significant Other Able To Verbalize Education Provided Not Indicated Pertinent Medications D5%/NaCl IV at 60 ml/hr (245 kcal/day) Pertinent Labs K 3.2 L, ALP 1325 H, Tbili 0.7 WNL (improved), WBC 8.3 H, ALB 2.1 L, ALP 125 H, H/H 10.9 L/32.6 L Height (Feet) 5 feet Height (Inches) 6.00 inches Weight (Pounds) 90 pounds (admission) Weight (Calculated Kilograms) 40.414417 kilograms Patient Weight 40.823 kg Body Mass Index 14.52 kg/m2 Usual Weight 90 lbs %UBW 100 %IBW 63 [place]/Adjusted Body Weight IBW: 142 lb, 65 kg Recent Weight Change No Weight Status Emaciated Gastrointestinal Symptoms None Last BM 12/21/16 Food Allergies No Usual Diet At Home Regular, no restrictions Skin Integrity Comment: Dillan scale: 17; no skin issues noted Current % PO Good (75-100%) Estimated Energy Expenditure (kcals/day) 9040-5710 kcal/day (BEE x 1.2-1.5 CBW for wt gain promotion) Estimated Protein Required (g/day) 65-78 gm/day (1-1.2 gm/kg IBW for wt gain promotion) Estimated Fluid Required (l/day) 1.3-1.6 L/day (1 ml/kcal/day for maintenance) Problem/Etiology/Signs/Symptoms Malnutrition related to physiological causes as evidenced by BMI: 14.5 kg/m2 and 63% of IBW, as well as thin, emaciated appearance. Expected Outcomes/Goals - Monitor advancement of diet, appetite, and PO intakes w/ goal of pt meeting at least 50% of estimated nutritional needs, labs trending WNL, normal GI function, and skin integrity/wt maintenance Dietitian Recommendations * Recommend continuing PPN D20%, AA8.5% at 42 ml/hr, IL20% at 10 ml/hr daily via peripheral line Provides (w/ D5% IV at 60 ml/hr): 1239 kcal/day, 43 gm protein/day, 1248 ml total volume/day, and GIR: 1.7 gm CHO/kg/min Meets: 95% of lower end of estimated caloric needs and 66% of lower end of estimated protein needs * Consider advance to clear liquid diet if/when medically appropriate Follow Up High Risk: F/U in 2-3 days
[2016-12-21] MEDS: METHIMAZOLE 5 MG TABLET PO SCH ×2 (09:59→21:40)
[2016-12-21] MEDS: ATAZANAVIR 150 MG PO SCH (09:59)
[2016-12-21 11:25] VITALS: BP_SYST 110
--- NOTE | 2016-12-21 13:25 | NUR ---
CALLED OR: CALLED OR TO VERIFY IF THE PT WILL GO FOR SURGERY TODAY, PT IS ON NPO SINCE MID NIGHT. BUT THE OR NURSE WAS NOT SURE AT THIS TIME. WILL CALL BACK LATER.
--- NOTE | 2016-12-21 13:53 | NUR ---
Dietitian Recommendations * Recommend continuing PPN D20%, AA8.5% at 42 ml/hr, IL20% at 10 ml/hr daily via peripheral line Provides (w/ D5% IV at 60 ml/hr): 1239 kcal/day, 43 gm protein/day, 1248 ml total volume/day, and GIR: 1.7 gm CHO/kg/min Meets: 95% of lower end of estimated caloric needs and 66% of lower end of estimated protein needs * Consider advance to clear liquid diet if/when medically appropriate LP, RD Please refer to Nutrition F/U for details.
--- NOTE | 2016-12-21 14:03 | NUR ---
CALLED MD: CALLED TO VERIFY FOR THE SURGERY TODAY.
[2016-12-21] MEDS: D5/0.45 NS 1,000 ML IV SCH (15:21)
[2016-12-21 15:35] VITALS: BP_SYST 103
--- NOTE | 2016-12-21 15:45 | NUR ---
PT WENT FOR SURGERY: PT WENT FOR SURGERY, CONSENT DONE, VITAL SIGNS STABLE.
[2016-12-21] MEDS ORDERED: METOCLOPRAMIDE HCL 10 MG/2 ML VIAL IVP PRN (17:15)
[2016-12-21] MEDS ORDERED: MORPHINE 4 MG/ML INJ. SYRINGE IVP PRN ×2 (17:15)
[2016-12-21] MEDS: 0.45% NACL 1,000 ML IV SCH ×2 (17:45→21:38)
[2016-12-21] MEDS ORDERED: [UNRECOGNIZED DRUG - OTHER] IV SCH ×11 (18:00)
[2016-12-21] MEDS ORDERED: POTASSIUM CHLORIDE IV SCH ×11 (18:00)
[2016-12-21] MEDS ORDERED: TPN PERIPHERAL IV SCH ×11 (18:00)
[2016-12-21] MEDS ORDERED: SODIUM ACETATE IV SCH ×11 (18:00)
[2016-12-21] MEDS: MORPHINE 4 MG/ML INJ. SYRINGE IVP PRN ×2 (18:05→18:15)
[2016-12-21] MEDS ORDERED: MORPHINE 4 MG/ML INJ. SYRINGE ONE (18:09)
--- NOTE | 2016-12-21 19:05 | NUR ---
PT RETURNED FROM SURGERY: PT HAD LAP CHOLECYSTECTOMY DONE BY DR. MORRIS. PT WAS A/O X4, VITAL SIGNS STABLE.
--- NOTE | 2016-12-21 19:10 | NUR ---
OPENING NOTES RECEIVED REPORT FROM DAYSHIFT NURSE AT BEDSIDE. PATIENT POST-SURGERY, STABLE, GROGGY, ALERT TO NAME AND LOCATION. IV PATENT AND INFUSING NO SIGNS OF INFILTRATION. DRESSINGS DRY AND INTACT. TIFFANIE DRAINING. PATIENT VOIDED IN URINAL. RESPIRATIONS EVEN AND UNLABORED. VITALS SIGNS WITHIN NORMAL LIMITS. BED IN LOWEST POSITION, BED ALARM ON, CALL LIGHT WITHIN REACH.
--- NOTE | 2016-12-21 19:25 | NUR ---
CLOSING NOTE: ENDORSED TO TELEHEALTH COORDINATOR NURSE/ ASTON/RN FOR CONTINUE CARE.
[2016-12-21] MEDS: cefTRIAXone 1 GM in D5W 50 ML IV SCH (19:43)
[2016-12-21 19:45] VITALS: BP_SYST 135
[2016-12-21] MEDS: FAT EMULSIONS 250 ML IV SCH (19:47)
--- NOTE | 2016-12-21 20:00 | NUR ---
PAIN PT COMPLAINS OF PAIN 10/10, WILL ADMINISTER PRN PAIN MEDICATION.
[2016-12-21] MEDS: metroNIDAZOLE 500 mg/NS 100 ML IV SCH (21:39)
[2016-12-21] MEDS: RITONAVIR 100 MG PO SCH (21:40)
[2016-12-21] MEDS: TEMAZEPAM 15 MG CAPSULE PO PRN (22:38)
--- NOTE | 2016-12-21 22:43 | NUR ---
PAIN PATIENT STATED PAIN 10/10 IN ABDOMINAL AREA. ADMINISTERED PRN PAIN MEDICATION. PT. TOLERATED.
[2016-12-22] VITALS (7 sets, daily range): BP systolic 95–128
--- NOTE | 2016-12-22 00:30 | NUR ---
RN ROUNDS PATIENT SLEEPING, VISIBLE RISE AND FALL OF CHEST NOTED, RESPIRATIONS EVEN AND UNLABORED. IV, PPN, LIPIDS INFUSING WITH NO SIGNS OF INFILTRATION NOTED. NO S/S OF ACUTE DISTRESS NOTED. FALL PRECAUTIONS IN PLACE, BED ALARM ON, CALL LIGHT WITHIN REACH.
--- NOTE | 2016-12-22 01:45 | NUR ---
PAIN PATIENT COMPLAINED OF PAIN 10/10IN ABDOMEN. PRN PAIN MEDICATION ADMINISTERED.
[2016-12-22] MEDS: metroNIDAZOLE 500 mg/NS 100 ML IV SCH ×3 (01:47→16:50)
[2016-12-22] MEDS: HYDROmorphone 1 MG INJ. 1 MG/ML AMPUL IVP PRN ×2 (01:47→05:00)
--- NOTE | 2016-12-22 02:35 | NUR ---
RN ROUNDS PATIENT SLEEPING, VISIBLE RISE AND FALL OF CHEST NOTED, RESPIRATIONS EVEN AND UNLABORED. NO S/S OF ACUTE DISTRESS NOTED. FALL PRECAUTIONS IN PLACE, BED ALARM ON, CALL LIGHT WITHIN REACH.
--- NOTE | 2016-12-22 04:35 | NUR ---
RN ROUNDS PATIENT SLEEPING WITH VISIBLE RISE AND FALL OF CHEST. NO S/S OF ACUTE DISTRESS NOTED. FALL PRECAUTIONS IN PLACE, CALL LIGHT WITHIN REACH.
--- NOTE | 2016-12-22 05:06 | NUR ---
pain med. Medicated for pain level 9/10 at this time,now, resting in bed with no distress, no bleeding noted at this time.
--- NOTE | 2016-12-22 06:30 | NUR ---
PAIN PAGED DR. TRACY ORDERS PLACED TO MODIFY EXISTING PRN PAIN MEDICATION ORDERS.
--- NOTE | 2016-12-22 07:00 | NUR ---
CLOSING NOTES PATIENT A/O X4. PT COMPLAINED OF PAIN 02/02, PT EDUCATED THAT MEDICATION COULD NOT BE ADMINISTERED UNTIL 0749. PT. VERBALIZED UNDERSTANDING. IV FLUIDS, PPN, AND LIPIDS INFUSING NO SIGNS OF INFILTRATION. DRESSINGS DRY AND INTACT. TIFFANIE DRAINING RED FLUID. RESPIRATIONS EVEN AND UNLABORED. VITALS SIGNS WITHIN NORMAL LIMITS. BED IN LOWEST POSITION, BED ALARM ON, CALL LIGHT WITHIN REACH. WILL ENDORSE CARE TO DAYSHIFT.
[2016-12-22 07:20] LABS: BASOPHILS % (AUTO) 0.2 % (0.0-2.0); EOSINOPHILS # (AUTO) 0.2 K/uL (0.0-0.4); EOSINOPHILS % (AUTO) 1.9 % (0.0-4.0); HEMATOCRIT 37.4 % (36-54); HEMOGLOBIN 12.7 g/dL (14.0-18.0); LYMPHOCYTES # (AUTO) 1.1 K/uL (1.0-5.5); LYMPHOCYTES % (AUTO) 9.1 % (20.5-51.5); MEAN CORPUSCULAR HEMOGLOBIN 31 pg (27-31); MEAN CORPUSCULAR HGB CONC 34 % (32-36); MEAN CORPUSCULAR VOLUME 91 fL (79.0-98.0); MONOCYTES # (AUTO) 0.6 K/uL (0.0-1.0); MONOCYTES % (AUTO) 5.5 % (1.7-9.3); NEUTROPHILS # (AUTO) 9.9 K/uL (1.8-7.7); NEUTROPHILS % (AUTO) 83.3 % (40.0-70.0); PLATELET COUNT (AUTO) 278 K/uL (130-430); RED BLOOD CELL COUNT(AUTO) 4.13 MIL/uL (4.2-6.2); RED CELL DISTRIBUTION WIDTH 12.7 % (9.0-15.0)
[2016-12-22 07:31] LABS: WHITE BLOOD COUNT (AUTO) 11.8 K/uL (4.8-10.8)
[2016-12-22 07:44] LABS: CALCIUM 7.9 mg/dL (8.4-11.0); CREATININE 0.43 mg/dL (0.55-1.30); POTASSIUM 3.6 mmol/L (3.5-5.1); TOTAL BILIRUBIN 1.2 mg/dL (0.0-1.0)
[2016-12-22] MEDS ORDERED: HYDROmorphone 2 MG/ML VIAL IVP PRN (07:49)
--- NOTE | 2016-12-22 08:00 | NUR ---
AM SHIFT NOTE: RECEIVED PT A/O X4, C/O LAP CHOLEY ON 12/21/16, POST OP DAY ONE, PAIN 5/10, IV AT RIGHT FOREARM AND LEFT FA WITH PPN AT 42 ML/HR AND D51/2 NS AT 60 ML/HR AND LIPD AT 10ML/HR. CLEAR LIQUID DIET, INCISION SITE AT ABDOMEN WITH 4 POINT, DRESSING INTACT, AND TIFFANIE DRAINAGE IN PLACE, AMBULATED WITH PRINCIPAL SOFTWARE ARCHITECT, BED SIDE COMMODE, VOIDING, BED AT LOWEST POSITION, CALL LIGHT WITHIN REACH.
[2016-12-22] MEDS: METOPROLOL TARTRATE 25 MG TABLET PO SCH ×2 (08:09→21:00)
[2016-12-22] MEDS: ACYCLOVIR 400 MG TABLET PO SCH ×2 (08:09→22:01)
[2016-12-22] MEDS: FAMOTIDINE 20 MG TABLET PO SCH ×2 (08:09→22:01)
[2016-12-22] MEDS: ATAZANAVIR 150 MG PO SCH ×2 (08:11→22:07)
[2016-12-22] MEDS: METHIMAZOLE 5 MG TABLET PO SCH ×2 (08:13→22:02)
--- NOTE | 2016-12-22 09:25 | NUR ---
MEDS: ROUTINE MEDS GIVEN, PT TOLERATED WELL.
--- NOTE | 2016-12-22 09:30 | NUR ---
MD ROUNDING: SEEN BY DR. MORRIS, ORDER CARRIED OUT.
[2016-12-22] MEDS: HYDROmorphone 2 MG/ML VIAL IVP PRN ×3 (11:15→18:53)
--- NOTE | 2016-12-22 12:50 | NUR ---
ROUNDING: PT HAD CLEAR LIQUID DIET. C/O SOME ABDOMINAL DISTENDED. PT GOT UP FOR A WHILE WITH GRUBBER HELPED.
[2016-12-22] MEDS: D5/0.45 NS 1,000 ML IV SCH (14:44)
--- NOTE | 2016-12-22 14:53 | NUR ---
DC Planning: Requested from dr. Doll to dc plan / order and arrange sub acute/snf. Cm/Dcp to f/u Addendum: 12/22/16 at 1515 by Judy Burr DP Faxed SNF referral to [phone] [phone]. Will follow up. Addendum: 12/22/16 at 2507 by Judy Burr DP Spoke with Bard in admitting at [facility] patient accepted. Brad requested to be called for bed assignment upon discharge order. CM made aware.
[2016-12-22] MEDS: cefTRIAXone 1 GM in D5W 50 ML IV SCH (16:50)
[2016-12-22] MEDS: FAT EMULSIONS 250 ML IV SCH (16:53)
--- NOTE | 2016-12-22 17:50 | NUR ---
ROUNDING: ROUTINE MEDS GIVEN, PAIN MEDS GIVEN ORDERED.
[2016-12-22] MEDS ORDERED: SODIUM CHLORIDE IV SCH ×10 (18:00)
[2016-12-22] MEDS ORDERED: TPN PERIPHERAL IV SCH ×10 (18:00)
[2016-12-22] MEDS ORDERED: [UNRECOGNIZED DRUG - OTHER] IV SCH ×10 (18:00)
[2016-12-22] MEDS ORDERED: POTASSIUM ACETATE IV SCH ×10 (18:00)
[2016-12-22] MEDS: RITONAVIR 100 MG PO SCH (18:53)
--- NOTE | 2016-12-22 19:00 | NUR ---
ROUNDING: SEEN BY .
--- NOTE | 2016-12-22 19:15 | NUR ---
CLOSING: ENDORSED TO SECOND BAKER NURSE/DUYEN FOR CONTINUE CARE.
--- NOTE | 2016-12-22 19:15 | NUR ---
OPENING NOTES RECEIVED REPORT FROM DAYSHIFT NURSE AT BEDSIDE. PATIENT DAY 2, POST-SURGERY, STABLE, A/O x4. IV PATENT AND INFUSING NO SIGNS OF INFILTRATION. DRESSINGS DRY AND INTACT. TIFFANIE DRAINING RED FLUID. PATIENT VOIDED IN URINAL. RESPIRATIONS EVEN AND UNLABORED, LUNGS CLEAR. VITALS SIGN BLOOD PRESSURE 95/65. BED IN LOWEST POSITION, BED ALARM ON, CALL LIGHT WITHIN REACH.
--- NOTE | 2016-12-22 20:10 | NUR ---
NAUSEA PT COMPLAINED OF NAUSEA, DID NOT VOMIT. EMESIS BAG PROVIDED, WILL ADMINISTER PRN ANTI-EMETIC.
[2016-12-22] MEDS: ONDANSETRON HCL 4 MG/2 ML VIAL IVP PRN (20:45)
--- NOTE | 2016-12-22 22:00 | NUR ---
Round. resting in bed with no distress,void 450ml yellow urine(urinal), call light in reach,bed in low position, bed alarm on.
[2016-12-22] MEDS: TEMAZEPAM 15 MG CAPSULE PO PRN (22:27)
[2016-12-22] MEDS ORDERED: metroNIDAZOLE 500 mg/NS 100 ML IV ONE ×2 (22:53→23:00)
--- NOTE | 2016-12-23 | NUR ---
IV RE-INSERTION: infiltration to IV sites. Restarted on 12/23/16 at 0000 . Successful after 3 attempts. Resumed current IVF, ppn, lipids and regulated. Will observe for any signs of infiltration. Right upper arm 20 Gauge, lipids at 10ml/hr, ppn at 42 ml/hr. Left forearm 22 Gauge, D5 1/2NS at 60ml/hr and antibiotics. Patient tolerated.
--- NOTE | 2016-12-23 02:00 | NUR ---
Round. sleeping in bed at this time with no distress,PPN/lipid infusing via Rt arm, patent,ivf/D51/2 ns infusing via Lt arm, patent; call light in reach,bed in low position, bed alarm on.
--- NOTE | 2016-12-23 03:30 | NUR ---
PAIN PATIENT COMPLAINS OF ABDOMINAL PAIN AT INCISION SITE 02/02, WILL ADMINISTER PRN PAIN MEDICATION. BLOOD PRESSURE 124/82, RESPIRATIONS 18.
[2016-12-23] MEDS: HYDROmorphone 2 MG/ML VIAL IVP PRN ×5 (03:44→22:13)
--- NOTE | 2016-12-23 05:30 | NUR ---
RN ROUNDS PATIENT SLEEPING IN SEMI-KELLOGG'S POSITION. NO S/S OF ACUTE DISTRESS NOTED. IV, PPN, LIPIDS INFUSING WITH NO SIGNS OF INFILTRATION. VISIBLE RISE AND FALL OF CHEST NOTED. FALL PRECAUTIONS IN PLACE, CALL LIGHT WITHIN REACH.
[2016-12-23 05:55] VITALS: BP_SYST 98
[2016-12-23] MEDS: D5/0.45 NS 1,000 ML IV SCH ×2 (06:05→18:18)
[2016-12-23] MEDS: metroNIDAZOLE 500 mg/NS 100 ML IV SCH ×4 (06:17→21:40)
--- NOTE | 2016-12-23 07:01 | NUR ---
ROUND. Condition stable, slept most of the night, no fever during the shift, no bleeding to surgical site, january in place, with less than a cc serosanguineous drainage;call light in reach/bed in low position, bed alarm on.
--- NOTE | 2016-12-23 07:39 | NUR ---
CLOSING NOTES PATIENT A/O X4. IV FLUIDS, PPN, AND LIPIDS INFUSING NO SIGNS OF INFILTRATION. DRESSINGS DRY AND INTACT. TIFFANIE DRAINING RED FLUID. RESPIRATIONS EVEN AND UNLABORED. VITALS SIGNS WITHIN NORMAL LIMITS. BED IN LOWEST POSITION, BED ALARM ON, CALL LIGHT WITHIN REACH. WILL ENDORSE CARE TO DAYSHIFT.
[2016-12-23 07:44] LABS: BASOPHILS % (AUTO) 0.2 % (0.0-2.0); EOSINOPHILS # (AUTO) 0.1 K/uL (0.0-0.4); EOSINOPHILS % (AUTO) 0.9 % (0.0-4.0); HEMATOCRIT 35.5 % (36-54); HEMOGLOBIN 11.3 g/dL (14.0-18.0); LYMPHOCYTES # (AUTO) 1.1 K/uL (1.0-5.5); LYMPHOCYTES % (AUTO) 7.9 % (20.5-51.5); MEAN CORPUSCULAR HEMOGLOBIN 29 pg (27-31); MEAN CORPUSCULAR HGB CONC 32 % (32-36); MEAN CORPUSCULAR VOLUME 92 fL (79.0-98.0); MONOCYTES # (AUTO) 1.1 K/uL (0.0-1.0); MONOCYTES % (AUTO) 7.8 % (1.7-9.3); NEUTROPHILS # (AUTO) 12.2 K/uL (1.8-7.7); NEUTROPHILS % (AUTO) 83.2 % (40.0-70.0); PLATELET COUNT (AUTO) 293 K/uL (130-430); RED BLOOD CELL COUNT(AUTO) 3.86 MIL/uL (4.2-6.2); RED CELL DISTRIBUTION WIDTH 12.7 % (9.0-15.0); WHITE BLOOD COUNT (AUTO) 14.5 K/uL (4.8-10.8)
--- NOTE | 2016-12-23 08:00 | NUR ---
AM SHIFT NOTE: RECEIVED PT A/O X 4, C/O ABDOMINAL PAIN 08/03, POST OP 2 DAYS,TIFFANIE IN PLACE, DRESSING DRY AND INTACT, IV AT RIGHT FA AND LEFT FA WITH PPN 42ML/HR AND LIPID AND D5 1/2 NS AT 60 ML/HR, CLEAR LIQUID DIET. AMBULATED WITH PT.VOIDING WELL, BED AT LOWEST POSITION, CALL LIGHT WITHIN REACH.
[2016-12-23 08:01] LABS: CREATININE 0.45 mg/dL (0.55-1.30); PHOSPHORUS 2.2 mg/dL (2.7-4.5); POTASSIUM 3.9 mmol/L (3.5-5.1)
--- NOTE | 2016-12-23 08:35 | NUR ---
MD ROUNDING: SEEN BY ,
--- NOTE | 2016-12-23 09:40 | NUR ---
ROUNDING: ROUTINE MEDS GIVEN, PAIN MEDS GIVEN.
--- NOTE | 2016-12-23 09:40 | NUR ---
MD ROUNDING: SEEN BY DR. YEUNG.
[2016-12-23] MEDS: ACYCLOVIR 400 MG TABLET PO SCH ×2 (09:55→20:28)
[2016-12-23] MEDS: METOPROLOL TARTRATE 25 MG TABLET PO SCH ×3 (09:57→20:35)
[2016-12-23] MEDS: ONDANSETRON HCL 4 MG/2 ML VIAL IVP PRN (09:59)
[2016-12-23] MEDS: FAMOTIDINE 20 MG TABLET PO SCH ×2 (10:17→20:29)
[2016-12-23] MEDS: METHIMAZOLE 5 MG TABLET PO SCH ×2 (10:19→20:32)
--- NOTE | 2016-12-23 12:03 | NUR ---
DISCHARGE PLANNING DC Planning order for LTAC evaluation. Faxed DC Planning order to [phone]. Notified [facility] Will follow up. Addendum: 12/23/16 at 1429 by Judy Burr DP [facility]; spoke with Brad in admitting at [facility] patient assigned to room [facility] RN to report bed available anytime.
--- NOTE | 2016-12-23 12:15 | NUR ---
ROUNDING: PT HAD LUNCH WELL, CONTINUE TO MONITOR.
[2016-12-23 12:42] VITALS: BP_SYST 113
[2016-12-23 16:47] VITALS: BP_SYST 103
[2016-12-23] MEDS: cefTRIAXone 1 GM in D5W 50 ML IV SCH (17:46)
[2016-12-23] MEDS: FAT EMULSIONS 250 ML IV SCH (17:49)
[2016-12-23] MEDS ORDERED: TPN PERIPHERAL IV SCH ×10 (18:00)
[2016-12-23] MEDS ORDERED: SODIUM CHLORIDE IV SCH ×10 (18:00)
[2016-12-23] MEDS ORDERED: [UNRECOGNIZED DRUG - OTHER] IV SCH ×10 (18:00)
[2016-12-23] MEDS ORDERED: POTASSIUM ACETATE IV SCH ×10 (18:00)
--- NOTE | 2016-12-23 18:10 | NUR ---
ROUNDING: ROUTINE MEDS GIVEN, CONTINUE TO MONITOR.
[2016-12-23] MEDS: RITONAVIR 100 MG PO SCH (18:34)
--- NOTE | 2016-12-23 19:10 | NUR ---
CLOSING : ENDORSED TO DAILY SALES AUDIT CLERK RN /KELLY FOR CONTINUE CARE, PT WAS A/O X 4, VITAL SIGNS STABLE.
--- NOTE | 2016-12-23 19:25 | NUR ---
CHANGE OF SHIFT: pt. awake when received, with visitor at bedside. IV on both arms with PPN, Lipids and D5 1/2 NS @ 6o ml. hr. abdominal dressing intact with J-dent. call light within reach.
[2016-12-23 20:01] VITALS: BP_SYST 104
--- NOTE | 2016-12-23 20:30 | NUR ---
NOTES: schedule meds given. pt. voided per urinal. pt. needs attended.
[2016-12-23] MEDS: TEMAZEPAM 15 MG CAPSULE PO PRN (21:41)
--- NOTE | 2016-12-23 21:45 | NUR ---
NOTES: pt. wants his pain shot now, explain to pt. that medication is not due yet, wants to speak to charge nurse. informed charge nurse Brie and will talk to pt. as soon as possible.
--- NOTE | 2016-12-23 23:00 | NUR ---
NOTES: pt. sleeping when checked. continue to monitor.
--- NOTE | 2016-12-24 00:21 | NUR ---
NOTES: IVF on left forearm been alarming, flush line, keep patent. pt. waking up but goes back to sleep.
[2016-12-24 01:48] VITALS: BP_SYST 100
[2016-12-24] MEDS: HYDROmorphone 2 MG/ML VIAL IVP PRN ×3 (02:49→12:10)
--- NOTE | 2016-12-24 02:53 | NUR ---
NOTES: medicated for c/o post op abdominal pain, repositioned self.
--- NOTE | 2016-12-24 03:49 | NUR ---
NOTES: pt. sleeping when checked. condition unchanged.
[2016-12-24 06:00] VITALS: BP_SYST 114
--- NOTE | 2016-12-24 06:00 | NUR ---
NOTES: still sleeping when made rounds. IVF on both arms infusing well. abdominal dressing intact with J-dent.
[2016-12-24] MEDS: metroNIDAZOLE 500 mg/NS 100 ML IV SCH ×2 (06:37→14:45)
--- NOTE | 2016-12-24 06:52 | NUR ---
CLOSING NOTES: IV PPN @ 42 cc/hr, Lipids @ 10 cc/hr via rt. arm and D5 1/2 NS @ 60 ml/hr via left forearm. still pretty sleepy when checked. J-dent drained @ 10 cc.abdominal dressing intact. off sequential. for further care and assistance.
[2016-12-24 07:21] LABS: BASOPHILS % (AUTO) 0.2 % (0.0-2.0); EOSINOPHILS # (AUTO) 0.2 K/uL (0.0-0.4); EOSINOPHILS % (AUTO) 1.8 % (0.0-4.0); HEMATOCRIT 31.3 % (36-54); HEMOGLOBIN 10.2 g/dL (14.0-18.0); LYMPHOCYTES # (AUTO) 1.5 K/uL (1.0-5.5); LYMPHOCYTES % (AUTO) 12.4 % (20.5-51.5); MEAN CORPUSCULAR HEMOGLOBIN 30 pg (27-31); MEAN CORPUSCULAR HGB CONC 33 % (32-36); MEAN CORPUSCULAR VOLUME 92 fL (79.0-98.0); MONOCYTES # (AUTO) 0.8 K/uL (0.0-1.0); MONOCYTES % (AUTO) 6.5 % (1.7-9.3); NEUTROPHILS # (AUTO) 9.2 K/uL (1.8-7.7); NEUTROPHILS % (AUTO) 79.1 % (40.0-70.0); PLATELET COUNT (AUTO) 290 K/uL (130-430); RED CELL DISTRIBUTION WIDTH 13.2 % (9.0-15.0); WHITE BLOOD COUNT (AUTO) 11.7 K/uL (4.8-10.8)
--- NOTE | 2016-12-24 07:25 | NUR ---
endorsed pt. to incoming shift with nurse Kaplan, pt. still sleeping.
[2016-12-24 07:44] LABS: ALBUMIN 2.1 g/dL (3.4-4.8); CALCIUM 7.8 mg/dL (8.4-11.0); CREATININE 0.51 mg/dL (0.55-1.30); PHOSPHORUS 2.3 mg/dL (2.7-4.5); TOTAL BILIRUBIN 1.1 mg/dL (0.0-1.0)
[2016-12-24 08:05] VITALS: BP_SYST 115
--- NOTE | 2016-12-24 08:05 | NUR ---
Opening Note Report received from Loni WHEELER. Patient is currently resting in bed. Call light is within reach and bed is in low position. TPN is running @ 40 and Lipids @10 on the LFA 20g IV. D51/2NS is running on the RFA @ 60. Abdominal incision is covered with an occlusive dressing. TIFFANIE drain is on the right abdomen draining sanginous drainage. Will continue to monitor.
[2016-12-24] MEDS: FAMOTIDINE 20 MG TABLET PO SCH (08:22)
[2016-12-24] MEDS: ACYCLOVIR 400 MG TABLET PO SCH (08:23)
[2016-12-24] MEDS: METOPROLOL TARTRATE 25 MG TABLET PO SCH (08:24)
[2016-12-24] MEDS: METHIMAZOLE 5 MG TABLET PO SCH (08:25)
[2016-12-24] MEDS: ATAZANAVIR 150 MG PO SCH (08:26)
--- NOTE | 2016-12-24 10:13 | NUR ---
DISCHARGE PLANNING Spoke with [facility] patient accepted [facility]. Bed assignment will be given upon discharge order. Ordered Radiology CD. Placed transportation packet in nurses station. Addendum: 12/24/16 at 1516 by Judy Burr DP patient assigned to room 312B at [facility] RN to report [phone] bed available after 7pm. CM to notify patient. LIAM Kaplan made aware. Called [facility] [phone] arranged BLS transport berry picker 7pm. Addendum: 12/24/16 at 1551 by Judy Burr DP Per patient requested confirmed with Cyndi, bed can be available soonest 6pm. LIAM Kaplan made aware. Called [facility] [phone] spoke with Watson who unable to arrange transport at 6pm. Called [facility] [phone] spoke with Yinka arranged BLS transport berry picker 6pm.
--- NOTE | 2016-12-24 10:30 | NUR ---
MD Rounds Dr. De Luna rounded on the patient. MD removed the right abdominal TIFFANIE drain and original surgical dressing. Patient tolerated well.
--- NOTE | 2016-12-24 12:10 | NUR ---
Pain med Medicated the patient with Dilaudid 2mg IVP. Will reassess.
[2016-12-24] MEDS: D5/0.45 NS 1,000 ML IV SCH (12:34)
[2016-12-24 12:38] VITALS: BP_SYST 107
--- NOTE | 2016-12-24 13:00 | NUR ---
Rounds Patient is resting in bed. Call light is within reach and bed is in low position.
--- NOTE | 2016-12-24 13:30 | NUR ---
PT NOTES CHART REVIEWED AND CLEARED FOR PT BY TARIQ GARZA. ATTEMPTED TO SEE PATIENT FOR THERAPY AT 1115 AND 1215. PT REFUSED ALL SKILLED INTERVENTION TODAY D/T 02/02 PAIN AT INCISION SITE. DISCUSSED WITH NURSINGTARIQ. PT GIVEN PAIN MEDICATIONS, BUT STILL DID NOT WANT TO PERFORM THERAPY. EDUCATED PT THE IMPORTANCE OF OOB ACTIVITIES AND GAIT TRAINING W PT HAVING A GOOD UNDERSTANDING. PT STATES, "I WILL TRY TOMORROW IF I AM NOT D/C BY THAN." NURSING AWARE PT WILL NOT PERFORM THERAPY TODAY. PT POSSIBLY D/C TO SNF LATER TOODAY PER RN. PVE(2) Addendum: 12/24/16 at 1441 by Josefa Bee PT PHYSICAL THERAPY CO-SIGN The Physical Therapy Progress Notes documented by Building Consultant have been reviewed. Reviewed/Co-Signed by: Josefa Bee PT Documentation Done by: Yash Vitale, DISTRIBUTION CENTER ASSOCIATE
--- NOTE | 2016-12-24 14:48 | NUR ---
Nutrition F/U Admitting Diagnosis Severe RLQ pain, malnutrition Reviewed Pertinent Medical/Surgical Hx Medical Record Patient Primary RN Medical History Comment: HIV, hyperthyroidism per MD notes Subjective Information Pt was seen resting in bed w/ surgeon and primary RN at bedside providing care. Pt is s/p TIFFANIE drain removal from abd region. Pt reported that he has been tolerating clear liquid diet well, and had some gelatin, fruit ice, and sips of coffee. Pt noted preferences for chicken broth. RD to notify [facility] staff. Pt reported fair appetite, and stated he has a desire for solid foods. PPN seen infusing as per MD/pharmacy. Pt is likely meeting optimal nutritional needs, however, would benefit from advancement of diet. Pt is not appropriate for nutrition education. Current Diet Order/Nutrition Support Clear liquid x3 days + PPN D20%, AA8.5% at 44 ml/hr, IL20% at 10 ml/hr daily via peripheral line Patient/Significant Other Able To Verbalize Education Provided Not Indicated Pertinent Medications zofran, lactulose, pepcid D5%/NaCl IV at 60 ml/hr (245 kcal/day) Pertinent Labs K 4 WNL (improved), Tbili 1.1 H, WBC 11.7 H, ALB 2.1 L, ALP 116 H, H/H 10.2 L/31.3 L Height (Feet) 5 feet Height (Inches) 6.00 inches Weight (Pounds) 90 pounds (admission) Weight (Calculated Kilograms) 40.188159 kilograms Patient Weight 40.823 kg Body Mass Index 14.52 kg/m2 Usual Weight 90 lbs %UBW 100 %IBW 63 Pearl/Adjusted Body Weight IBW: 142 lb, 65 kg Recent Weight Change No Weight Status Emaciated Gastrointestinal Symptoms None Last BM 12/21/16 Food Allergies No Usual Diet At Home Regular, no restrictions Skin Integrity Comment: Dillan scale: 17; pt is s/p TIFFANIE drain removal to R abd Current % PO Good (75-100%) Estimated Energy Expenditure (kcals/day) 0459-5320 kcal/day (BEE x 1.2-1.5 CBW for wt gain promotion, Sx healing) Estimated Protein Required (g/day) 65-78 gm/day (1-1.2 gm/kg IBW for wt gain promotion, Sx healing) Estimated Fluid Required (l/day) 1.3-1.6 L/day (1 ml/kcal/day for maintenance) Problem/Etiology/Signs/Symptoms Malnutrition related to physiological causes as evidenced by BMI: 14.5 kg/m2 and 63% of IBW, as well as thin, emaciated appearance. Expected Outcomes/Goals - Monitor advancement of diet, appetite, and PO intakes w/ goal of pt meeting at least 50% of estimated nutritional needs, labs trending WNL, normal GI function, and skin integrity/wt maintenance Dietitian Recommendations * Recommend continuing PPN D20%, AA8.5% at 44 ml/hr, IL20% at 10 ml/hr daily via peripheral line Provides (w/ D5% IV at 60 ml/hr): 1264 kcal/day, 45 gm protein/day, 2496 ml total volume/day, and GIR: 1.8 gm CHO/kg/min Meets: 96% of lower end of estimated caloric needs and 69% of lower end of estimated protein needs * Consider advance to soft (low fiber/bland) diet if/when medically appropriate Follow Up High Risk: F/U in 2-3 days
--- NOTE | 2016-12-24 15:00 | NUR ---
Rounds Dr. Conner rounded on the patient he ordered for the patient to bed tranferred to [place]. Will follow up.
--- NOTE | 2016-12-24 15:00 | NUR ---
Dietitian Recommendations * Recommend continuing PPN D20%, AA8.5% at 44 ml/hr, IL20% at 10 ml/hr daily via peripheral line Provides (w/ D5% IV at 60 ml/hr): 1264 kcal/day, 45 gm protein/day, 2496 ml total volume/day, and GIR: 1.8 gm CHO/kg/min Meets: 96% of lower end of estimated caloric needs and 69% of lower end of estimated protein needs * Consider advance to soft (low fiber/bland) diet if/when medically appropriate LP, RD Please refer to Nutrition F/U for details.
--- NOTE | 2016-12-24 16:10 | NUR ---
Pain med Medicated the patient with Dilaudid 2mg IVP. Will reassess.
--- NOTE | 2016-12-24 16:30 | NUR ---
DC planning: KAT Suarez had been in to explain dc plan for LTAC per MD order to pt...pt refusing to discharge anywhere. Pt's nurse Rosaura explained the dc plan to pt also, and that his care would be continued at [facility] with the same physician Dr. merino.Pt still refusing to discharge and wants to go AMA. I went in with Judy, dc marketing planner, introduced myself, to explain the necessity of continuing his care and transfer to LTAC, IM letter..I explained that Dr. Merino wants to continue his IV nutrition, antibiotics, and pain medicine at [facility]. Pt said he wants to leave AMA. I explained to pt that he is not medically stable to leave and if he leaves AMA this could endanger his life. I explained he could appeal his discharge and presented/explained IM letter for his signature. Pt did not want to sign the IM letter, but I explained that Medicare requires us to explain his discharge and sign the IM letter to acknowledge only that his appeal rights have been explained to him. He put his reading glasses on, and took several minutes to read the letter, then signed it and said it's not a discharge dispute and requested me to get the nurse to remove his IV lines. I let nurse Rosaura know and she is contacting Dr. Merino. Charge nurse Brynn also aware. I gave pt a copy of the IM letter after he signed it. HEMANT WHEELER
--- NOTE | 2016-12-24 16:30 | NUR ---
Rounds Patient is refusing to be transferred to [place]. Will speak with CM.
[2016-12-24 16:41] VITALS: BP_SYST 109
--- NOTE | 2016-12-24 17:25 | NUR ---
RN Notes Patient has asked to leave AMA. He was advised regarding the implications of leaving AMA. CM has also spoken to him as well. He was also advised that he may be liable for any medical expenses acquired throughout the hospital stay. Will continue to monitor.
--- NOTE | 2016-12-24 18:55 | NUR ---
AMA Note Patient decided to leave AMA. Patient was advised on the implications of leaving AMA. A bed a [facility] ambulance had been arranged. However, patient refused to be transferred. CM and myself spoke to him several times a day on the reason was Dr. Merino had ordered a transfer. Patient still refused. IV and ID band were removed. His friend accompanied him off the unit. This person will also be taking care of the patient at home.
--- NOTE | 2016-12-24 19:00 | NUR ---
Spoke with MD Spoke with Dr. Merino and let him know that the patient left AMA.
== END 2016-12-24 18:45 | disposition left against medical advice (07) | DRG 414 ==
LOC: SMU 15:57
PROVIDERS: ADMIT Family Medicine; ATTEND Family Medicine
PROC: 0FJ44ZZ Inspection of Gallbladder, Percutaneous Endoscopic Approach (ICD-10-PCS; 2016-12-21)
PROC: 0FT40ZZ Resection of Gallbladder, Open Approach (ICD-10-PCS; principal; 2016-12-21 16:00)
DX: K80.63 Calculus of gallbladder and bile duct with acute cholecystitis with obstruction (principal); E43 Unspecified severe protein-calorie malnutrition; Z68.1 Body mass index [BMI] 19.9 or less, adult; B00.9 Herpesviral infection, unspecified; E05.90 Thyrotoxicosis, unspecified without thyrotoxic crisis or storm; F17.200 Nicotine dependence, unspecified, uncomplicated; M81.0 Age-related osteoporosis without current pathological fracture; I25.10 Atherosclerotic heart disease of native coronary artery without angina pectoris; M16.10 Unilateral primary osteoarthritis, unspecified hip; K66.0 Peritoneal adhesions (postprocedural) (postinfection); Z96.642 Presence of left artificial hip joint; G43.909 Migraine, unspecified, not intractable, without status migrainosus; D64.9 Anemia, unspecified; G62.9 Polyneuropathy, unspecified; Z53.21 Procedure and treatment not carried out due to patient leaving prior to being seen by health care provider; I25.2 Old myocardial infarction; Z88.2 Allergy status to sulfonamides; Z88.8 Allergy status to other drugs, medicaments and biological substances; Z90.49 Acquired absence of other specified parts of digestive tract
CPT/HCPCS: 36415; 71010; 74181; 78226; 80048; 80053; 80076; 82248-TC; 83690-TC; 83735-TC; 84100-TC; 84439; 84443-TC; 84478-TC; 85025; 85610-TC; 87070; 87070-TC; 87075-TC; 87081; 88304; 93005; 93306; A9537; C1727; J0610; J0696; J1170; J2270; J2405; J3475; J3480; J3490; J7060; J7131; J8499; Q9964

== ENCOUNTER 2021-07-13 10:05 | Emergency (ER) | payer OTHER, MEDICAID ==
[~2021-07-13] VITALS: Ht 167.6 cm; Wt 43.5 kg
[~2021-07-13 10:05] MED LIST changes: -ACYC400T PO; +ACYC400T19 PO; +COR3.125 PO; +FAMO20TA8 PO; +METH5TAB70 PO; +METO25TA6 PO; +RALT400T PO; -RALT400T5 PO
[2021-07-13 10:09] VITALS: BP_SYST 129
--- NOTE | 2021-07-13 10:18 | NUR ---
Pt. came in byself with c/o weakness, light headed and "not functioning well," pt. tearful admitted has alot of stress, HIV+, partner in August, pt. has lost signifigant weight and admits to not being able to eat
--- NOTE | 2021-07-13 10:20 | NUR ---
Patient to ER bed 6 to gown for evaluation. Side rails up. Report given to Evelyn.
--- NOTE | 2021-07-13 10:24 | NUR ---
DR BERNARD AT BEDSIDE FOR EXAM
[2021-07-13] MEDS ORDERED: NACL 0.9% 1,000 ML IV ONE (10:30)
[2021-07-13 11:25] LABS: BASOPHILS % (AUTO) 0.2 % (0.0-2.0); HEMATOCRIT 45.4 % (36-54); HEMOGLOBIN 15.6 g/dL (14.0-18.0); LYMPHOCYTES % (AUTO) 23.1 % (20.5-51.5); MEAN CORPUSCULAR HEMOGLOBIN 36 pg (27-31); MEAN CORPUSCULAR HGB CONC 34 % (32-36); MEAN CORPUSCULAR VOLUME 104 fL (79.0-98.0); MONOCYTES # (AUTO) 0.6 K/uL (0.0-1.0); MONOCYTES % (AUTO) 13.8 % (1.7-9.3); NEUTROPHILS # (AUTO) 2.6 K/uL (1.8-7.7); NEUTROPHILS % (AUTO) 61.9 % (40.0-70.0); PLATELET COUNT (AUTO) 195 K/uL (130-430); RED BLOOD CELL COUNT(AUTO) 4.38 MIL/uL (4.2-6.2); RED CELL DISTRIBUTION WIDTH 11.8 % (9.0-15.0); WHITE BLOOD COUNT (AUTO) 4.3 K/uL (4.8-10.8)
--- NOTE | 2021-07-13 11:36 | NUR ---
PT IN NAD. RESP EVEN AND UNLABORED, ON RA @97%. DENIES ANY CP OR SOB.
[2021-07-13 11:49] LABS: CALCIUM 9.2 mg/dL (8.4-11.0); CREATININE 0.66 mg/dL (0.55-1.30); POTASSIUM 4.2 mmol/L (3.5-5.1)
[2021-07-13 11:53] LABS: ALBUMIN 3.5 g/dL (3.4-4.8); TOTAL BILIRUBIN 1.3 mg/dL (0.0-1.0)
[2021-07-13 11:54] LABS: C-REACTIVE PROTEIN QUANT 1.7 mg/dL (0-0.5)
--- NOTE | 2021-07-13 13:24 | NUR ---
Patient given written and verbal discharge instructions and verbalizes understanding. ER MD discussed with patient the results and treatment provided. Patient in stable condition. ID arm band removed. IV catheter removed intact and dressing applied, no active bleeding. Patient educated on pain management and to follow up with PMD. Pain Scale . Opportunity for questions provided and answered. Medication side effect fact sheet provided.
[2021-07-13 13:31] VITALS: BP_SYST 134
== END 2021-07-13 13:24 | disposition home or self-care (01) ==
LOC: SED 10:05
DX: R53.1 Weakness (principal); E86.0 Dehydration; F32.9 Major depressive disorder, single episode, unspecified; I10 Essential (primary) hypertension; K21.9 Gastro-esophageal reflux disease without esophagitis; Z88.2 Allergy status to sulfonamides; Z88.5 Allergy status to narcotic agent; Z88.8 Allergy status to other drugs, medicaments and biological substances; Z79.899 Other long term (current) drug therapy; Z20.822 Contact with and (suspected) exposure to COVID-19
CPT/HCPCS: 36415; 36600; 71045; 80053; 82550; 82803; 83605; 83615; 83690; 85025; 86140; 87040; 87426; 93005; 96360; 99285; J7030